=== PATIENT | male | born 1930 | race Caucasian/White ===

== ENCOUNTER 2019-06-07 07:47 | Day surgery (SDC) | payer OTHER ==
[2019-06-04 15:24] LABS: Absolute Lymphocytes (CBC) 1.4 K/uL (0.7-4.9); Basophils % 0.9 % (0-1.3); Lymphocytes % 19.6 % (15.3-44.8); MPV 8.6 fL (7.6-11.3); RBC Red Blood Cell Count 5.16 M/uL (4.33-5.43)
[2019-06-04 15:28] LABS: Protime INR 1.03
--- NOTE | 2019-06-04 15:50 | RAD REPORT ---
EXAM DESCRIPTION: RAD - Chest Pa And Lat (2 Views) - 06/04/2019 3:00 pm CLINICAL HISTORY: pre-op for cath procedurepending cardiac catheterization COMPARISON: Two view chest October 2018 TECHNIQUE: PA and lateral views of the chest were obtained. FINDINGS: The lungs are similar volume to the comparison. Chronic interstitial lung disease is prese nt. Lung markings are not substantially different comparison. Right hemidiaphragm elevation and righ t costophrenic will are unchanged. Heart size is normal and central vasculature is within normal limi ts. No pleural effusion or pneumothorax seen. No acute bony finding noted. No aortic abnormality. IMPRESSION: Chronic interstitial lung disease is present with a pattern similar to the October 2018 stud y. No acute finding.
[2019-06-07] MEDS ORDERED: NA CHLORIDE 0.9% 500 ML ONE (08:48)
[2019-06-07] MEDS ORDERED: HEPA 1000U/500MLS 2,000 UNIT/1,000 ML BAG IV ONE (09:12)
[2019-06-07] MEDS ORDERED: MIDAZOLAM HCL 2 MG/2 ML INJ ONE (09:23)
[2019-06-07] MEDS ORDERED: FENTANYL CITR 100 MCG/2 ML ONE ×2 (09:23→13:36)
[2019-06-07] MEDS ORDERED: HYDRALAZINE HCL 20 MG/ML VIAL ONE (09:57)
[2019-06-07 11:10] VITALS: TEMP 97.3
[2019-06-07] MEDS ORDERED: FENTANYL CITR 100 MCG/2 ML IV ONE (13:33)
--- NOTE | 2019-06-07 13:53 | OP ---
Surgeon: Boris Parnell MD Mr. Farley is 88. Procedure: Abdominal angiogram with runoffs. No stent procedure or other interventional procedure w as done. 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 It was patent. No endoleak. Both stents were widely patent wi th no stenosis. They connected to both common femoral arteries bilaterally. 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 There is a stent that has absolu tely no flow and even after 15 seconds of waiting no measurable amount of contrast reached the poplit eal artery or the distal vessels, so on the right we never saw the popliteal anterior tibial, posteri or tibial, or peroneal arteries. On the left, there is a stent in the very proximal part of the SFA that has a 50% in-stent stenosis distal to that and the SFA is a long 70 to 90% stenosis. Flow is sl ow and it takes between 5 to 8 seconds for any flow to reach the popliteal vessels. There is no visu alization of the posterior tibial, anterior tibial, or peroneal arteries on the left. Procedure In Detail: The patient was brought to the cardiac pathology laboratory technologist in a fasting state, sedated wit h Versed and fentanyl, prepared and draped in usual sterile fashion. Right femoral approach was used . We used 1% lidocaine, 15 cc to anesthetize the tissues around the right femoral artery, it was ent ered using an 18-gauge needle, a short J-wire was placed into the artery and a 4-Surinamese sheath was pl aced. We used this to put a 4-Surinamese sheath into the descending aorta just above the level of the ki dney arteries. A single injection was done of 60 mL of contrast and angiograms were carried out so w e could see all of the distal vessels from this one, shot at the end of the procedure when we decided not to attempt any intervention. The sheath was pulled. The arteriotomy closed using manual pressu re. The patient will be referred to a vascular surgeon to consider revascularization. It may be oxana ng with being technically difficult, it may be highly risky for Mr. Farley at age 88 to go undergo a vascular surgery procedure, but perhaps an attempt could be made using a stent to get more flow to th e popliteal artery on the left. SH/MODL Voice ID: [id number] Report ID: [id number]
[2019-06-07 16:27] VITALS: BP 147/84; O2SAT 93
== END 2019-06-07 16:29 | disposition home or self-care (01) ==
LOC: CCL 07:47
PROVIDERS: ATTEND Internal Medicine
DX: I70.211 Atherosclerosis of native arteries of extremities with intermittent claudication, right leg (principal); I70.92 Chronic total occlusion of artery of the extremities; I10 Essential (primary) hypertension; E78.5 Hyperlipidemia, unspecified; E11.9 Type 2 diabetes mellitus without complications; Z87.891 Personal history of nicotine dependence; Z82.49 Family history of ischemic heart disease and other diseases of the circulatory system
CPT/HCPCS: 85025; 36415; 85610; 82947 ×2; 85730; 71046; 36200; 75630; C1893; J0360; J2250; J3010 ×2; J7040

== ENCOUNTER 2020-04-06 20:49 | Observation (INO) | payer OTHER ==
--- OUTSIDE RECORDS SUMMARY | 2020-04-06 20:52 | XMS REPORT | Clinical Summary ---
:1930 Author Organization [facility] Address [address] [place] [address] Care Team Providers Name Role Phone Unavailable Primary Care Provider Unavailable Allergies No Known Allergies Medications Medication Sig Dispensed Refills Start Date End Date Status simvastatin Take 20 mg 0 Active (ZOCOR) 20 MG by mouth tablet nightly. atenolol Take 25 mg 0 Active (TENORMIN) 25 MG by mouth tablet daily. sertraline Take 50 mg 0 Active (ZOLOFT) 50 MG by mouth tablet daily. meloxicam (MOBIC) Take 7.5 mg 0 Active 15 MG tablet by mouth daily . aspirin 81 MG EC Take 81 mg 0 Ac tive tablet by mouth daily. ascorbic acid, Take 1,000 0 Acti ve vitamin C, mg by mouth (VITAMIN C) 1000 daily. MG tablet valsartan Take 320 mg 0 Active (DIOVAN) 320 MG by mouth tablet daily. omega-3 fatty Take 2 g by 0 Acti ve acids-fish oil mouth 2 340-1,000 mg Cap (two) times per capsule daily. folic Take by 0 Active acid/multivit-min mouth. /lutein (CENTRUM SILVER ORAL) clopidogrel Take 1 360 tablet 0 07/09/2019 Active (PLAVIX) 75 mg tablet (75 1 tablet mg total) by mouth daily. clopidogrel Take 1 30 tablet 2 07/09/2019 Discont inued (PLAVIX) 75 mg tablet (75 0 (Reo rder) tablet mg total) by mouth daily. 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 Never 07/05/2019 How many drinks containing alcohol do you have on a typical Not asked day when you are drinking? How often do you have six or more drinks on one occasion? No t asked Sex Assigned at Date Recorded Not on file Last Filed Vital Signs Vital Sign Reading Time Taken Comments Blood Pressure 167/94 07/09/2019 1:18 PM IMAGE ARCHIVIST Pulse 57 07/09/2019 1:18 PM IMAGE ARCHIVIST Temperature 37.1 C (98.7 F) 07/09/2019 5:00 AM IMAGE ARCHIVIST Respiratory Rate 18 07/09/2019 1:18 PM IMAGE ARCHIVIST Oxygen Saturation 96% 07/09/2019 1:18 PM IMAGE ARCHIVIST Inhaled Oxygen Concentration - - Weight - - Height - - Body Mass Index - - Plan of Treatment Not on file Procedures Procedure Name Priority Date/Time Associated Diagnosis Comme nts CARDIAC CATH REPORT 07/14/2019 1:54 - SCAN PM IMAGE ARCHIVIST CT/CTA AAA AND Routine 07/14/2019 1:35 Atherosclerosis of Res ults for this RUNOFF PM IMAGE ARCHIVIST artery of left lower procedu re are in extremity (HCC) the results section. TRANSFUSION SERVICE 07/10/2019 6:03 REPORT - SCAN PM IMAGE ARCHIVIST PERIPHERAL ANGIOS / 07/09/2019 7:02 PAD (peripheral a rtery AORTOGRAM AM IMAGE ARCHIVIST disease) (HCC) Case Notes (1)CASE 6TOP ABORH, MANUAL STAT 07/09/2019 6:32 AM IMAGE ARCHIVIST Res ults for this procedure are i n the results section . TYPE AND SCREEN, AUTOMATED Routine 07/09/2019 6:12 AM IMAGE ARCHIVIST Results for this procedure are i n the results section . CBC W/PLT COUNT & AUTO Routine 07/05/2019 11:43 AM IMAGE ARCHIVIST Results for this DIFFERENTIAL procedure are i n the results section . CBC W/PLT COUNT & AUTO Routine 07/05/2019 11:43 AM IMAGE ARCHIVIST Results for this DIFFERENTIAL procedure are i n the results section . BASIC METABOLIC PANEL (7) Routine 07/05/2019 11:43 AM IMAGE ARCHIVIST Results for this procedure are i n the results section . ECG 12-LEAD Routine 07/05/2019 11:34 AM IMAGE ARCHIVIST Procedure Note - Interface, External Ris In - 07/05/2019 1:01 PM IMAGE ARCHIVIST Ventricular Rate 59 BPM Atrial Rate 59 BPM P-R Interval 226 ms QRS Duration 94 ms Q-T Interval 434 ms QTC Calculation(Bazett) 429 ms P [place] 50 degrees R [place] 81 degrees T [place] 41 degrees Sinus bradycardia with 1st d egree A-V block Otherwise normal ECG No previous ECGs available ECG 12-LEAD Routine 07/05/2019 11:34 AM IMAGE ARCHIVIST Resu lts for this procedure are in the results section . after 04/06/2019 Results CARDIAC CATH REPORT - SCAN (07/14/2019 1:54 PM IMAGE ARCHIVIST) Narrative Performed At This result has an attachment that is no t available. CTA AAA and Runoff (07/14/2019 1:35 PM IMAGE ARCHIVIST) Specimen Narrative Performed At Addendum Begins [employer] RIS REPORT STATUS:A Addendum: I agree with the previously described no n vascular findings. Sigmoid diverticulosis is apparent, with out signs of diverticulitis. Signed: Umang Castro MD Report Verified Date/Time: 07/19/2019 12:50:12 Reading Location: [facility] Reading Room - [facility] [id number] Addendum Ends FINAL REPORT CTA AAA with bilateral external runoff - 07/14/2019 3:39 PM. Comparison: None available History: 88 years old Male with left l imb claudication with recent intervention angioplasty of the left SFA . Evaluated for interval change. 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 This study is performed in an attempt to avoi d an invasive procedure. Technique: Multi-detector CT technolog y was employed ([place] CT 660 scanner). Spiral acquisition before and during intravenous contrast administration. Images were obtained bef ore and during the dynamic passage of intravenous contrast material . Multi-planar 3-D volume-rendering reconstruction was perf ormed using an independent workstation interactively by the interpr eting physician as well as the 3-D specialist for optimal visualiza tion of the abdominal aorta, pelvic arteries as well as its branches, along with bilateral lower extremity vasculature. Please refer to the contrast sheet scann ed in the EPIC system for the amount and route of contrast given. This exam was performed according to our departmental dose-optimization programme, which inclu gloria automated exposure control, adjustment of the mA and/or kV according to patient size and/or use of iterative reconstruction t echnique. Dose modulation, iterative reconstruction, and/or weight based adjustment of the mA/kV was utilized to reduce the radiation dos e to as low as reasonably achievable. RESULT: Potential study limitations: None. LIMITED CHEST: The visualized chest wall is unremarkabl e. The visualized lungs reveal no acute abnormalities, except fo r bilateral dependent atelectasis and emphysematous changes. There is a 5 mm noncalcific nodule in the left lower lobe (image 51) . VASCULAR WITH ADVANCED 3-D OFFLINE POST- PROCESSING: The supra mesenteric and mesenteric and renal segments of the abdominal aorta are normal in course and caliber with mild to moderate protruding atherosclerotic muñoz ges. Endovascular stent graft, commencing imm ediately below the renal arteries into the iliac arteries, and yuen ve typical crisscrossing pattern with the left iliac limb termina meredith in the left common iliac artery and the right iliac system termin ates in the right common iliac artery. The endostent is well-posi tioned. The proximal margin and the distal margin are well opposed. There is no evidence of endoleak, stenosis or pseudoaneurysm not ed. The celiac artery, SMA, and BOONE are bradshaw nt. The bilateral single renal arteries are patent. The pelvic arteries are tortuous, but no rmal in caliber with mild to moderate calcification sclerotic changes . Bilateral common femoral arteries are no rmal in course and caliber with mild distal calcific atheroscleroti c changes. The right superficial femoral artery has multiple skipped lesions at its ostium and proximal segment with priya r total occlusion and has diffuse calcific atherosclerotic changes at its mid segment, there is a patent stent with mild instant resteno sis distal to the stent the femoral artery is normal in course and c aliber with no significant luminal stenosis. The right popliteal artery is normal in caliber with minimal calcific atherosclerotic changes. The right tibio peroneal trunk is normal in caliber and contour. The anterior tibial artery is normal in caliber and is widely patent and continues as do rsalis pedis artery at its distal end. The right peroneal artery is widely patent and terminates at the ankle. The posterior tibial arter y is also widely patent and terminates as distal plantar branches. The left superficial femoral artery has moderate atherosclerotic changes with protruding thrombus at its proximal segment followed by a short widely patent stent with minimal in-stent restenosis. The mid segment of the SFA has moderate luminal atherosclerosis though no significant luminal stenosis noted. The right popliteal artery is widely pat ent with minimal calcific atherosclerotic changes. The right tibio peroneal trunk is patent. The right anterior tibial artery is patent a nd terminates as dorsalis pedis artery at its distal end. The patrice leandra artery is also widely patent and terminates just ankle the pos terior tibial artery is small in caliber however there is contrast opa cification throughout the course of the artery with no significant critical stenosis noted. There is no acute aortic pathology, such as dissection, intramural hematoma, or contained rupture. Senior [employer] dimensions of the abdomin al aorta are as follows: *2.8 cm at the supra-mesenteric segment *2.2 cm at the mesenteric segment *2.0 cm at the renal segment *2.0 cm at the infrarenal segment *2.1 x 2.6 cm at the aortic bifurcation The IVC, right iliac vein, and left miguel c vein are patent and without visible thrombus. ABDOMEN-PELVIS: In the abdomen, the liver and spleen katie ears unremarkable. No abnormal enhancing structure is identifi ed. The pancreas appears grossly normal. The adrenal glands are n ot enlarged. There is a large single gallstone measuring 2.3 cm in the gallbladder. The kidneys are normal in size and shape . No hydronephrosis or perirenal fluid collection is identified . There is a large simple appearing 4.6 cm cyst in the lower pole of the left kidney. Bowel is not well assessed by CT angiogr aphy as enteric contrast is not given. No obvious bowel dilation is seen. There is no significant retroperitoneal adenopathy. No free fluid or free air is identified. The visualized pelvic organs appear unre markable. BONES: Degenerative changes involving the thora cic and lumbar spine. IMPRESSION: 1. Endovascular stent graft, commencing immediately below the renal arteries into the iliac arteries, and yuen ve typical crisscrossing pattern with the left iliac limb termina meredith in the left common iliac artery and the right iliac system termin ates in the right common iliac artery. The endo-stent is well-pos itioned. The proximal margin and the distal margin are well opposed. There is no evidence of endoleak, stenosis or pseudoaneurysm not ed. 2. The right superficial femoral artery has multiple skipped lesions at its ostium and proximal segment with near total occlusion and has diffuse calcific atherosclerotic changes at its mid segment, there is a patent stent with mild instant resteno sis distal to the stent the femoral artery is normal in course and c aliber with no significant luminal stenosis. 3. The left superficial femoral artery h as moderate atherosclerotic changes with protruding thrombus at its proximal segment followed by a short widely patent stent with minimal in-stent restenosis. The mid segment of the SFA has moderate luminal atherosclerosis though no significant luminal stenosis noted. 4. The popliteal and tibioperoneal trunk are widely patent with only minimal calcific atherosclerotic changes . Normal bilateral runoffs with mild diffuse atherosclerotic change s. 5. There is a large single gallstone luca suring 2.3 cm in the gallbladder. There is a large simple katie earing 4.6 cm cyst in the lower pole of the left kidney. 6. There is a 5 mm noncalcific nodule in the left lower lobe, a follow-up unenhanced low-dose CT can be obtained in 3-6 months at clinical discretion. An addendum will be dictated regarding t he non-vascular findings by the Sheet Tester Radiologists. Signed: Charles Holden MD Report Verified Date/Time: 07/16/2019 08:43:19 Electronically signed by: UMANG pritchett 07/19/2019 12:50 PM Procedure Note Interface, External Ris In - 07/19/2019 12:52 PM IMAGE ARCHIVIST Addendum Begins REPORT STATUS:A Addendum: I agree with the previously described no n vascular findings. Sigmoid diverticulosis is apparent, with out signs of diverticulitis. Signed: Umang Castro MD Report Verified Date/Time: 07/19/2019 1 2:50:12 Reading Location: [facility] Reading Room - [facility] [id number] Addendum Ends FINAL REPORT CTA AAA with bilateral external runoff - 07/14/2019 3:39 PM. Comparison: None available History: 88 years old Male with left li mb claudication with recent intervention angioplasty of the left SFA . Evaluated for interval change. 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 This study is performed in an attempt to avoi d an invasive procedure. Technique: Multi-detector CT technology was employed ([place] CT 660 scanner). Spiral acquisition before and during intravenous contrast administration. Images were obtained bef ore and during the dynamic passage of intravenous contrast material . Multi-planar 3-D volume-rendering reconstruction was perf ormed using an independent workstation interactively by the interpr eting physician as well as the 3-D specialist for optimal visualiza tion of the abdominal aorta, pelvic arteries as well as its branches, along with bilateral lower extremity vasculature. Please refer to the contrast sheet scann ed in the [employer] system for the amount and route of contrast given. This exam was performed according to our departmental dose-optimization programme, which inclu gloria automated exposure control, adjustment of the mA and/or kV according to patient size and/or use of iterative reconstruction t echnique. Dose modulation, iterative reconstruction, and/or weight based adjustment of the mA/kV was utilized to reduce the radiation dos e to as low as reasonably achievable. RESULT: Potential study limitations: None. LIMITED CHEST: The visualized chest wall is unremarkabl e. The visualized lungs reveal no acute abnormalities, except fo r bilateral dependent atelectasis and emphysematous changes. There is a 5 mm noncalcific nodule in the left lower lobe (image 51) . VASCULAR WITH ADVANCED 3-D OFFLINE POST- PROCESSING: The supra mesenteric and mesenteric and renal segments of the abdominal aorta are normal in course and caliber with mild to moderate protruding atherosclerotic muñoz ges. Endovascular stent graft, commencing imm ediately below the renal arteries into the iliac arteries, and yuen ve typical crisscrossing pattern with the left iliac limb termina mereidth in the left common iliac artery and the right iliac system termin ates in the right common iliac artery. The endostent is well-posi tioned. The proximal margin and the distal margin are well opposed. There is no evidence of endoleak, stenosis or pseudoaneurysm not ed. The celiac artery, SMA, and BOONE are bradshaw nt. The bilateral single renal arteries are patent. The pelvic arteries are tortuous, but no rmal in caliber with mild to moderate calcification sclerotic changes . Bilateral common femoral arteries are no rmal in course and caliber with mild distal calcific atheroscleroti c changes. The right superficial femoral artery has multiple skipped lesions at its ostium and proximal segment with priya r total occlusion and has diffuse calcific atherosclerotic changes at its mid segment, there is a patent stent with mild instant resteno sis distal to the stent the femoral artery is normal in course and c aliber with no significant luminal stenosis. The right popliteal artery is normal in caliber with minimal calcific atherosclerotic changes. The right tibio peroneal trunk is normal in caliber and contour. The anterior tibial artery is normal in caliber and is widely patent and continues as do rsalis pedis artery at its distal end. The right peroneal artery is widely patent and terminates at the ankle. The posterior tibial arter y is also widely patent and terminates as distal plantar branches. The left superficial femoral artery has moderate atherosclerotic changes with protruding thrombus at its proximal segment followed by a short widely patent stent with minimal in-stent restenosis. The mid segment of the SFA has moderate luminal atherosclerosis though no significant luminal stenosis noted. The right popliteal artery is widely pat ent with minimal calcific atherosclerotic changes. The right tibio peroneal trunk is patent. The right anterior tibial artery is patent a nd terminates as dorsalis pedis artery at its distal end. The patrice elandra artery is also widely patent and terminates just ankle the pos terior tibial artery is small in caliber however there is contrast opa cification throughout the course of the artery with no significant critical stenosis noted. There is no acute aortic pathology, such as dissection, intramural hematoma, or contained rupture. Senior [employer] dimensions of the abdomin al aorta are as follows: *2.8 cm at the supra-mesenteric segment *2.2 cm at the mesenteric segment *2.0 cm at the renal segment *2.0 cm at the infrarenal segment *2.1 x 2.6 cm at the aortic bifurcation The IVC, right iliac vein, and left miguel c vein are patent and without visible thrombus. ABDOMEN-PELVIS: In the abdomen, the liver and spleen katie ears unremarkable. No abnormal enhancing structure is identifi ed. The pancreas appears grossly normal. The adrenal glands are n ot enlarged. There is a large single gallstone measuring 2.3 cm in the gallbladder. The kidneys are normal in size and shape . No hydronephrosis or perirenal fluid collection is identified . There is a large simple appearing 4.6 cm cyst in the lower pole of the left kidney. Bowel is not well assessed by CT angiogr aphy as enteric contrast is not given. No obvious bowel dilation is seen. There is no significant retroperitoneal adenopathy. No free fluid or free air is identified. The visualized pelvic organs appear unre markable. BONES: Degenerative changes involving the thora cic and lumbar spine. IMPRESSION: 1. Endovascular stent graft, commencing immediately below the renal arteries into the iliac arteries, and yuen ve typical crisscrossing pattern with the left iliac limb termina meredith in the left common iliac artery and the right iliac system termin ates in the right common iliac artery. The endo-stent is well-pos itioned. The proximal margin and the distal margin are well opposed. There is no evidence of endoleak, stenosis or pseudoaneurysm not ed. 2. The right superficial femoral artery has multiple skipped lesions at its ostium and proximal segment with near total occlusion and has diffuse calcific atherosclerotic changes at its mid segment, there is a patent stent with mild instant resteno sis distal to the stent the femoral artery is normal in course and c aliber with no significant luminal stenosis. 3. The left superficial femoral artery h as moderate atherosclerotic changes with protruding thrombus at its proximal segment followed by a short widely patent stent with minimal in-stent restenosis. The mid segment of the SFA has moderate luminal atherosclerosis though no significant luminal stenosis noted. 4. The popliteal and tibioperoneal trunk are widely patent with only minimal calcific atherosclerotic changes . Normal bilateral runoffs with mild diffuse atherosclerotic change s. 5. There is a large single gallstone luca suring 2.3 cm in the gallbladder. There is a large simple katie earing 4.6 cm cyst in the lower pole of the left kidney. 6. There is a 5 mm noncalcific nodule in the left lower lobe, a follow-up unenhanced low-dose CT can be obtained in 3-6 months at clinical discretion. An addendum will be dictated regarding t he non-vascular findings by the Sheet Tester Radiologists. Signed: Charles Holden MD Report Verified Date/Time: 07/16/2019 0 8:43:19 Performing Organization Address City/State/Zipcode Phone Number [facility] TRANSFUSION SERVICE REPORT - SCAN (07/10/2019 6:03 PM IMAGE ARCHIVIST) Narrative Performed At This result has an attachment that is no t available. ABORH, manual (07/09/2019 6:32 AM IMAGE ARCHIVIST) Pathologist Sig nature ABO Grouping O [facility] Rh Factor POS [facility] Specimen Blood Performing Organization Address City/[facility]/Zipcode Phone Number [facility] [address] [place] [phone] Type and screen, automated (07/09/2019 6:12 AM IMAGE ARCHIVIST) Pathologist Sig nature ABO/RH AUTOMATED O POSITIVE [facility] Ab Scrn NEGATIVE [facility] Specimen Blood Performing Organization Address City/[facility]/Zipcode Phone Number [facility] [address] [place] [address] CBC with platelet count + automated diff (07/05/2019 11:43 AM IMAGE ARCHIVIST) Pathologist Sig nature WBC 6.8 3.5 - 10.5 [facility] K/L [facility] RBC 5.31 4.63 - 6.08 [facility] M/L [facility] Hemoglobin 16.9 13.7 - 17.5 [facility] GM/DL [facility] Hematocrit 51.2 (H) 40.1 - 51.0 % [facility] MCV 96.4 (H) 79.0 - 92.2 fL [facility] MCH 31.8 25.7 - 32.2 pg [facility] MCHC 33.0 32.3 - 36.5 [facility] GM/DL [facility] RDW 13.6 11.6 - 14.4 % [facility] Platelets 276 150 - 450 K/CU [facility] MPV 10.2 9.4 - 12.4 fL [facility] nRBC 0 0 - 0 /100 WBC [facility] % Neutros 64 % [facility] % Lymphs 21 % [facility] % Monos 8 % [facility] % Eos 7 % [facility] % Baso 1 % [facility] # Neutros 4.32 1.78 - 5.38 [facility] # Lymphs 1.39 1.32 - 3.57 [facility] # Monos 0.53 0.30 - 0.82 [facility] # Eos 0.46 0.04 - 0.54 [facility] # Baso 0.05 0.01 - 0.08 [facility] Immature 0 0 - 1 % [facility] Granulocytes-Relative [facility] Specimen Blood Performing Organization Address City/State/Zipcode Phone Number [facility] [address] [place] [address] CENTER Basic Metabolic Panel (07/05/2019 11:43 AM IMAGE ARCHIVIST) Sodium 141 136 - 145 meq/L [facility] Potassium 4.9 3.5 - 5.1 meq/L [facility] Chloride 104 98 - 107 meq/L [facility] CO2 32 (H) 22 - 29 meq/L [facility] BUN 12 7 - 21 mg/dL [facility] Creatinine 0.89 0.57 - 1.25 [facility] mg/dL [facility] Glucose 114 (H) 70 - 105 mg/dL [facility] Calcium 9.0 8.4 - 10.2 [facility] mg/dL [facility] EGFR 81Comment: ESTIMATED mL/min/1.73 sq [facility] GFR IS NOT [facility] CREATININE CLEARANCE IN PREDICTING GLOMERULAR FILTRATION RATE. ESTIMATED GFR IS NOT APPLICABLE FOR DIALYSIS PATIENTS. Specimen Blood Narrative Performed At Cnc Technician ID - SUNIL Parks [facility] Performing Organization Address City/State/Zipcode Phone Number [facility] [id number] [place] [address] CENTER ECG 12 lead (07/05/2019 11:34 AM IMAGE ARCHIVIST) Specimen Narrative Performed At Ventricular Rate 59 BPM GE MUSE Atrial Rate 59 BPM P-R Interval 226 ms QRS Duration 94 ms Q-T Interval 434 ms QTC Calculation(Bazett) 429 ms P [place] 50 degrees R [place] 81 degrees T [place] 41 degrees Sinus bradycardia with 1st degree A-V bl ock Otherwise normal ECG No previous ECGs available Confirmed by MD KASSANDRA, RANCHO ([id number]) on 07/06/2019 7:07:41 AM Procedure Note Interface, External Ris In - 07/06/2019 7:07 AM IMAGE ARCHIVIST Ventricular Rate 59 BPM Atrial Rate 59 BPM P-R Interval 226 ms QRS Duration 94 ms Q-T Interval 434 ms QTC Calculation(Bazett) 429 ms P [place] 50 degrees R [place] 81 degrees T [place] 41 degrees Sinus bradycardia with 1st degree A-V bl ock Otherwise normal ECG No previous ECGs available Confirmed by MD KASSANDRA, RANCHO ([id number]) on 07/06/2019 7:07:41 AM Performing Organization Address City/State/Zipcode Phone Number [facility] after 04/06/2019 Insurance Payer Benefit Plan / Subscriber ID Effective Dates Phone Addre ss Type Group MEDICARE MEDICARE A B [id number] 1997-Present Medicare AETNA - [place]GD CARE AETNA INDEMNITY [id number] 2000-Present Comm NON CONTR
--- OUTSIDE RECORDS SUMMARY | 2020-04-06 20:53 | XMS REPORT | Continuity of Care Document ---
:1930 Author Organization [facility] t Address [address] [place] [address] Care Team Providers Name Role Phone Roldan CALI Attending Clinician Roldan CALI Attending Clinician ROLDAN Attending Clinician Unavailable Payers Payer Name Policy Type Policy Effective Date Expiration Date Sour ce Number MEDICAREMEDICARE A [id number] [address] [facility] [id number] [facility]-P 00:00:00 - Medical resentMedicare Center AETNA - MGD CAREAETNA [id number] [address] [facility] INDEMNITY NON 00:00:00 - Medical [id number] Ce nter -PresentComm Problems This patient has no known problems. Allergies, Adverse Reactions, Alerts This patient has no known allergies or adverse reactions. Social History Social Habit Start Date Stop Date Quantity Comments Source History [facility] - Alcohol Std Drinks Medica l Center History [facility] - Alcohol Binge Medical Manuelito ter Sex Assigned At [facility] Tobacco use and 2019-07-12 2019-07-[address] [facility] Karen kes - exposure 00:00:00 00:00:00 [facility] Alcohol intake 2019-07-12 2019-07-[address] [facility] Carlota es - 00:00:00 00:00:00 non-drinker of Medical Ce nter alcohol (finding) History SDOH 2019-07-05 2019-07-[address] [facility] - Alcohol Frequency 00:00:00 00:00:00 [facility] Tobacco Comment 2019-07-05 2019-07-05 quit in [address] [facility] - 00:00:00 00:00:00 [facility] Smoking Status Start Date Stop Date Source Former smoker 2019-07-12 00:00:00 2019-07-12 00:00:[address] [facility] Medications Ordered Filled Start Stop Current Ordering Indication Dosage Frequency Signature Comments Components Source Medication Medication Date Date Medication? Clinician (SIG) Name Name simvastatin Yes 20mg QD Take [address] (ZOCOR) 20 1-17 by mouth [facility]ukes - MG tablet 14:13: nightly. [facility] yasmine [address] [place] [address] atenolol Yes 25mg QD Take [address] (TENORMIN) 1-17 by mouth Lukes - 25 MG 14:13: daily. Medical tablet [address] [place] sertraline Yes 50mg QD Take [address] (ZOLOFT) 50 1-17 by mouth Luke s - MG tablet 14:13: daily. Medica l [address] [place] [address] meloxicam Yes 7.5mg QD Take 7.[address] (MOBIC) 15 1-17 mg by Lukes - MG tablet 14:13: mouth Medical 35 daily . [place] aspirin 81 Yes 81mg QD Take [address] MG EC -17 by mouth Lukes - tablet 14:13: daily. [address] ascorbic Yes 1000mg QD Take 1,[address] acid, 1-17 mg by [facility]ukes - vitamin C, 14:13: mouth Medica l (VITAMIN C) 35 daily. [place] 1000 MG tablet valsartan Yes 320mg QD Take [address] (DIOVAN) 1-17 mg by Lukes - 320 MG 14:13: mouth Medical tablet 35 daily. [place] omega-3 0 Yes 2g Q.5D Take [address] fatty 1-17 by mouth 2 [facility]ukes - acids-fish 14:13: (two) Medica l oil 35 times [place] 340-1,000 daily. mg Cap per capsule folic 2019- Yes Take by [facility] acid/multiv 1-17 mouth. [facility]ukes - it-min/lute 14:13: Medica l in (CENTRUM 35 [place] SILVER ORAL) clopidogrel 2020- No 75mg QD Take [address] (PLAVIX) 75 1-17 -16 tablet (75 L ukes - mg tablet 00:00: 23:59 mg total) Me dical 00 :00 by mouth Center daily. clopidogrel 75mg QD Take 1 [facility] (PLAVIX) 75 07-09 tablet (75 L ukes - mg tablet 00:00: 00:00 mg total) Me dical 00 :00 by mouth Center daily. Vital Signs Vital Name Observation Time Observation Value Comments Source Systolic blood 2019-07-09 13:18:00 167 mm[Hg] [facility] Diastolic blood 2019-07-09 13:18:00 94 mm[Hg] [facility] Heart rate 2019-07-09 13:18:00 57 /min [facility] Respiratory rate 2019-07-09 13:18:00 18 /min [facility] Oxygen saturation in 2019-07-09 13:18:00 96 /min [facility] Arterial blood by Medical Ce nter Pulse oximetry Body temperature 2019-07-09 05:00:00 37.06 Awilda [facility] Procedures Procedure Date / Time Performed Performing Clinician [facility] e CARDIAC CATH REPORT - 2019-07-14 13:54:05 Provider, Default [facility] SCAN Scanning [facility] CT/CTA AAA AND RUNOFF 2019-07-14 13:35:00 Josh Montilla [facility] TRANSFUSION SERVICE 2019-07-10 18:03:43 Provider, Default [facility] - REPORT - SCAN Scanning [facility] PERIPHERAL ANGIOS / 2019-07-09 07:02:00 Josh Montilla [facility] - AORTOGRAM [facility] ABORH, MANUAL 2019-07-09 06:32:00 Maria Teresa Vazquez [facility] TYPE AND SCREEN, 2019-07-09 06:12:00 Marah Gaines [facility] AUTOMATED [facility] BASIC METABOLIC PANEL 2019-07-05 11:43:00 Josh Montilla [facility] (7) [facility] CBC W/PLT COUNT & AUTO 2019-07-05 11:43:[address] [facility] DIFFERENTIAL [facility] ECG 12-LEAD 2019-07-05 11:34:58 Unknown, Hl7 Doctor [facility] Encounters Start End Encounter Admission Attending Care Care Encounter Source Date/Time Date/Time Type Type Clinicians Facility Department ID 2019-07-28 2019-07-28 Office KOBE Montilla [id number] 00 11:31:22 16:15:49 Visit Josh AMBULATOR [id number] Y [id number] Results Test Description Test Time Test Comments Results Result Sour e Comments CT, CTA AAA, W/ 2019-07-19 Addendum CHER.EXT.RUNOFF 12:50:00 BeginsREPORT STATUS:A Addendum: I agree with the previously described non vascular findings. Sigmoid diverticulosis is apparent, without signs of diverticulitis. Signed: Vi Castro MDReport Verified Date/Time: 07/19/2019 12:50:12 Reading Location: [facility] Diagnostic Imaging Reading Room - [facility] 1[facility].12Addendum EndsFINAL REPORT CTA AAA with bilateral external runoff - 07/14/2019 3:39 PM. Comparison: None available History: 88 years old Male with left limb claudication with recent intervention angioplasty of the left SFA. Evaluated for interval change. Indication: Clinically suspected peripheral vascular disease. This study is performed in an attempt to avoid an invasive procedure. Technique: Multi-detector CT technology was employed (Bartley CT 660 scanner). Spiral acquisition before and during intravenous contrast administration. Images were obtained before and during the dynamic passage of intravenous contrast material. Multi-planar 3-D volume-rendering reconstruction was performed using an independent workstation interactively by the interpreting physician as well as the 3-D specialist for optimal visualization of the abdominal aorta, pelvic arteries as well as its branches, along with bilateral lower extremity vasculature. Please refer to the contrast sheet scanned in the EPIC system for the amount and route of contrast given. This exam was performed according to our departmental dose-optimization programme, which includes automated exposure control, adjustment of the mA and/or kV according to patient size and/or use of iterative reconstruction technique. Dose modulation, iterative reconstruction, and/or weight based adjustment of the mA/kV was utilized to reduce the radiation dose to as low as reasonably achievable. RESULT: Potential study limitations: None. LIMITED CHEST:The visualized chest wall is unremarkable. The visualized lungs reveal no acute abnormalities, except for bilateral dependent atelectasis and emphysematous changes. There is a 5 mm noncalcific nodule in the left lower lobe (image 51). VASCULAR WITH ADVANCED 3-D OFFLINE POST-PROCESSING:The supra mesenteric and mesenteric and renal segments of the abdominal aorta are normal in course and caliber with mild to moderate protruding atherosclerotic changes. Endovascular stent graft, commencing immediately below the renal arteries into the iliac arteries, and have typical crisscrossing pattern with the left iliac limb terminates in the left common iliac artery and the right iliac system terminates in the right common iliac artery. The endostent is well-positioned. The proximal margin and the distal margin are well opposed. There is no evidence of endoleak, stenosis or pseudoaneurysm noted. The celiac artery, SMA, and BOONE are patent. The bilateral single renal arteries are patent. The pelvic arteries are tortuous, but normal in caliber with mild to moderate calcification sclerotic changes. Bilateral common femoral arteries are normal in course and caliber with mild distal calcific atherosclerotic changes. The right superficial femoral artery has multiple skipped lesions at its ostium and proximal segment with near total occlusion and has diffuse calcific atherosclerotic changes at its mid segment, there is a patent stent with mild instant restenosis distal to the stent the femoral artery is normal in course and caliber with no significant luminal stenosis. The right popliteal artery is normal in caliber with minimal calcific atherosclerotic changes. The right tibioperoneal trunk is normal in caliber and contour. The anterior tibial artery is normal in caliber and is widely patent and continues as dorsalis pedis artery at its distal end. The right peroneal artery is widely patent and terminates at the ankle. The posterior tibial artery is also widely patent and terminates as distal plantar branches. The left superficial femoral artery has moderate atherosclerotic changes with protruding thrombus at its proximal segment followed by a short widely patent stent with minimal in-stent restenosis. The mid segment of the SFA has moderate luminal atherosclerosis though no significant luminal stenosis noted. The right popliteal artery is widely patent with minimal calcific atherosclerotic changes. The right tibioperoneal trunk is patent. The right anterior tibial artery is patent and terminates as dorsalis pedis artery at its distal end. The peroneal artery is also widely patent and terminates just ankle the posterior tibial artery is small in caliber however there is contrast opacification throughout the course of the artery with no significant critical stenosis noted. There is no acute aortic pathology, such as dissection, intramural hematoma, or contained rupture. Lead Process Engineer dimensions of the abdominal aorta are as follows: *2.8 cm at the supra-mesenteric segment*2.2 cm at the mesenteric segment*2.0 cm at the renal segment*2.0 cm at the infrarenal segment*2.1 x 2.6 cm at the aortic bifurcation The IVC, right iliac vein, and left iliac vein are patent and without visible thrombus. ABDOMEN-PELVIS:In the abdomen, the liver and spleen appears unremarkable. No abnormal enhancing structure is identified. The pancreas appears grossly normal. The adrenal glands are not enlarged. There is a large single gallstone measuring 2.3 cm in the gallbladder. The kidneys are normal in size and shape. No hydronephrosis or perirenal fluid collection is identified. There is a large simple appearing 4.6 cm cyst in the lower pole of the left kidney. Bowel is not well assessed by CT angiography as enteric contrast is not given. No obvious bowel dilation is seen. There is no significant retroperitoneal adenopathy. No free fluid or free air is identified. The visualized pelvic organs appear unremarkable. BONES:Degenerative changes involving the thoracic and lumbar spine. IMPRESSION: 1. Endovascular stent graft, commencing immediately below the renal arteries into the iliac arteries, and have typical crisscrossing pattern with the left iliac limb terminates in the left common iliac artery and the right iliac system terminates in the right common iliac artery. The endo-stent is well-positioned. The proximal margin and the distal margin are well opposed. There is no evidence of endoleak, stenosis or pseudoaneurysm noted. 2. The right superficial femoral artery has multiple skipped lesions at its ostium and proximal segment with near total occlusion and has diffuse calcific atherosclerotic changes at its mid segment, there is a patent stent with mild instant restenosis distal to the stent the femoral artery is normal in course and caliber with no significant luminal stenosis. 3. The left superficial femoral artery has moderate atherosclerotic changes with protruding thrombus at its proximal segment followed by a short widely patent stent with minimal in-stent restenosis. The mid segment of the SFA has moderate luminal atherosclerosis though no significant luminal stenosis noted. 4. The popliteal and tibioperoneal trunk are widely patent with only minimal calcific atherosclerotic changes. Normal bilateral runoffs with mild diffuse atherosclerotic changes. 5. There is a large single gallstone measuring 2.3 cm in the gallbladder. There is a large simple appearing 4.6 cm cyst in the lower pole of the left kidney. 6. There is a 5 mm noncalcific nodule in the left lower lobe, a follow-up unenhanced low-dose CT can be obtained in 3-6 months at clinical discretion. An addendum will be dictated regarding the non-vascular findings by the Desktop Administrator Radiologists. Signed: Charles Holden MDReport Verified Date/Time: 07/16/2019 08:43:19 AAA and 2019-07-16 Interface, External [facility] Runoff 08:43:00 Ris In - 07/19/2019 - Med ical 12:52 PM CSTAddendum Cent er BeginsREPORT STATUS:A Addendum: I agree with the previously described non vascular findings. Sigmoid diverticulosis is apparent, without signs of diverticulitis. Signed: Vi Castro MDReport Verified Date/Time: 07/19/2019 12:50:12 Reading Location: [facility] Diagnostic Imaging Reading Room - [facility] [id number] EndsFINAL REPORT CTA AAA with bilateral external runoff - 07/14/2019 3:39 PM. Comparison: None available History: 88 years old Male with left limb claudication with recent intervention angioplasty of the left SFA. Evaluated for interval change. Indication: Clinically suspected peripheral vascular disease. This study is performed in an attempt to avoid an invasive procedure. Technique: Multi-detector CT technology was employed (Bartley CT 660 scanner). Spiral acquisition before and during intravenous contrast administration. Images were obtained before and during the dynamic passage of intravenous contrast material. Multi-planar 3-D volume-rendering reconstruction was performed using an independent workstation interactively by the interpreting physician as well as the 3-D specialist for optimal visualization of the abdominal aorta, pelvic arteries as well as its branches, along with bilateral lower extremity vasculature. Please refer to the contrast sheet scanned in the EPIC system for the amount and route of contrast given. This exam was performed according to our departmental dose-optimization programme, which includes automated exposure control, adjustment of the mA and/or kV according to patient size and/or use of iterative reconstruction technique. Dose modulation, iterative reconstruction, and/or weight based adjustment of the mA/kV was utilized to reduce the radiation dose to as low as reasonably achievable. RESULT: Potential study limitations: None. LIMITED CHEST:The visualized chest wall is unremarkable. The visualized lungs reveal no acute abnormalities, except for bilateral dependent atelectasis and emphysematous changes. There is a 5 mm noncalcific nodule in the left lower lobe (image 51). VASCULAR WITH ADVANCED 3-D OFFLINE POST-PROCESSING:The supra mesenteric and mesenteric and renal segments of the abdominal aorta are normal in course and caliber with mild to moderate protruding atherosclerotic changes. Endovascular stent graft, commencing immediately below the renal arteries into the iliac arteries, and have typical crisscrossing pattern with the left iliac limb terminates in the left common iliac artery and the right iliac system terminates in the right common iliac artery. The endostent is well-positioned. The proximal margin and the distal margin are well opposed. There is no evidence of endoleak, stenosis or pseudoaneurysm noted. The celiac artery, SMA, and BOONE are patent. The bilateral single renal arteries are patent. The pelvic arteries are tortuous, but normal in caliber with mild to moderate calcification sclerotic changes. Bilateral common femoral arteries are normal in course and caliber with mild distal calcific atherosclerotic changes. The right superficial femoral artery has multiple skipped lesions at its ostium and proximal segment with near total occlusion and has diffuse calcific atherosclerotic changes at its mid segment, there is a patent stent with mild instant restenosis distal to the stent the femoral artery is normal in course and caliber with no significant luminal stenosis. The right popliteal artery is normal in caliber with minimal calcific atherosclerotic changes. The right tibioperoneal trunk is normal in caliber and contour. The anterior tibial artery is normal in caliber and is widely patent and continues as dorsalis pedis artery at its distal end. The right peroneal artery is widely patent and terminates at the ankle. The posterior tibial artery is also widely patent and terminates as distal plantar branches. The left superficial femoral artery has moderate atherosclerotic changes with protruding thrombus at its proximal segment followed by a short widely patent stent with minimal in-stent restenosis. The mid segment of the SFA has moderate luminal atherosclerosis though no significant luminal stenosis noted. The right popliteal artery is widely patent with minimal calcific atherosclerotic changes. The right tibioperoneal trunk is patent. The right anterior tibial artery is patent and terminates as dorsalis pedis artery at its distal end. The peroneal artery is also widely patent and terminates just ankle the posterior tibial artery is small in caliber however there is contrast opacification throughout the course of the artery with no significant critical stenosis noted. There is no acute aortic pathology, such as dissection, intramural hematoma, or contained rupture. Lead Process Engineer dimensions of the abdominal aorta are as follows: *2.8 cm at the supra-mesenteric segment*2.2 cm at the mesenteric segment*2.0 cm at the renal segment*2.0 cm at the infrarenal segment*2.1 x 2.6 cm at the aortic bifurcation The IVC, right iliac vein, and left iliac vein are patent and without visible thrombus. ABDOMEN-PELVIS:In the abdomen, the liver and spleen appears unremarkable. No abnormal enhancing structure is identified. The pancreas appears grossly normal. The adrenal glands are not enlarged. There is a large single gallstone measuring 2.3 cm in the gallbladder. The kidneys are normal in size and shape. No hydronephrosis or perirenal fluid collection is identified. There is a large simple appearing 4.6 cm cyst in the lower pole of the left kidney. Bowel is not well assessed by CT angiography as enteric contrast is not given. No obvious bowel dilation is seen. There is no significant retroperitoneal adenopathy. No free fluid or free air is identified. The visualized pelvic organs appear unremarkable. BONES:Degenerative changes involving the thoracic and lumbar spine. IMPRESSION: 1. Endovascular stent graft, commencing immediately below the renal arteries into the iliac arteries, and have typical crisscrossing pattern with the left iliac limb terminates in the left common iliac artery and the right iliac system terminates in the right common iliac artery. The endo-stent is well-positioned. The proximal margin and the distal margin are well opposed. There is no evidence of endoleak, stenosis or pseudoaneurysm noted. 2. The right superficial femoral artery has multiple skipped lesions at its ostium and proximal segment with near total occlusion and has diffuse calcific atherosclerotic changes at its mid segment, there is a patent stent with mild instant restenosis distal to the stent the femoral artery is normal in course and caliber with no significant luminal stenosis. 3. The left superficial femoral artery has moderate atherosclerotic changes with protruding thrombus at its proximal segment followed by a short widely patent stent with minimal in-stent restenosis. The mid segment of the SFA has moderate luminal atherosclerosis though no significant luminal stenosis noted. 4. The popliteal and tibioperoneal trunk are widely patent with only minimal calcific atherosclerotic changes. Normal bilateral runoffs with mild diffuse atherosclerotic changes. 5. There is a large single gallstone measuring 2.3 cm in the gallbladder. There is a large simple appearing 4.6 cm cyst in the lower pole of the left kidney. 6. There is a 5 mm noncalcific nodule in the left lower lobe, a follow-up unenhanced low-dose CT can be obtained in 3-6 months at clinical discretion. An addendum will be dictated regarding the non-vascular findings by the Desktop Administrator Radiologists. Signed: Charles Holdeneport Verified Date/Time: 07/16/2019 08:43:19 H, manual 2019-07-09 07:24:00 Test Item Value Reference Range Interpretation Comme nts ABO Grouping (test code = 2588) O Rh Factor (test code = 2589) POS [facility], [id number] 07:16:00 Test Item Value Reference Range Interpretation Comments ABO/RH AUTOMATED (BEAKER) (test O POSITIVE code = 2260) Ab Scrn (test code = 890-4) NEGATIVE [facility] 12 [id number] 07:07:42Interface, External Ris In - 07/06/2019 7:07 AM CSTVentricular Rate 59 BPMAtrial Rate 59 BPMP-R Interval 226 msQRS Duration 94 msQ-T Interval 434 msQTC Calculation(Bazett) 429 msP [place] 50 degreesR [place] 81 degreesT [place] 41 degreesSinus bradycardia with 1st degree A-V blockOtherwise normal ECGNo previous ECGs availableConfirmed by MD KASSANDRA, RANCHO ([id number]) on 07/06/2019 7:07:41 [facility] Basic Metabolic [id number] 12:50:00 Test Item Value Reference Range Interpretation Comments Sodium (test code = 141 meq/L 952-755 1532-2) Potassium (test code = 4.9 meq/L 3.5-5.1 2823-3) Chloride (test code = 104 meq/L 98-107 2075-0) CO2 (test code = 32 meq/L 22-29 H 2028-9) BUN (test code = 12 mg/dL 7-21 3094-0) Creatinine (test code 0.89 mg/dL 0.57-1.25 = 2160-0) Glucose (test code = 114 mg/dL 70-105 H 2345-7) Calcium (test code = 9.0 mg/dL 8.4-10.2 22043-5) EGFR (test code = 81 mL/min/1.73 [place] [address]-4) NOT ACCURATE CREATININE CLEARANCE IN PREDICTING GLOMERULAR FILTRATION RATE . ESTIMATED GFR I S NOT APPLICABLE FOR DIALYSIS PATIENTS. ROGELIO (test code = ROGELIO) Drop Board Man ID - SUNIL M Lab Interpretation Abnormal (test code = 26245-3) [facility]OLIC [id number] 12:50:00 Test Item Value Reference Range Interpretation Comments SODIUM (BEAKER) 141 meq/L 136-145 (test code = 381) POTASSIUM (BEAKER) 4.9 meq/L 3.5-5.1 (test code = 379) CHLORIDE (BEAKER) 104 meq/L 98-107 (test code = 382) CO2 (BEAKER) (test 32 meq/L 22-29 H code = 355) BLOOD UREA NITROGEN 12 mg/dL 7-21 (BEAKER) (test code = 354) CREATININE (BEAKER) 0.89 mg/dL 0.57-1.25 (test code = 358) GLUCOSE RANDOM 114 mg/dL 70-105 H (BEAKER) (test code = 652) CALCIUM (BEAKER) 9.0 mg/dL 8.4-10.2 (test code = 697) EGFR (BEAKER) (test 81 mL/min/1.73 ESTIMA WAYLON GFR IS code = 1092) sq m NOT ACCURATE CREATININE CLEARANCE IN PREDICTING GLOMERULAR FILTRATION RATE . ESTIMATED GFR I S NOT APPLICABLE FOR DIALYSIS PATIEN TS. Drop Board Man ID - SUNIL MCBC with platelet count + automated [id number] 12:31:00 Test Item Value Reference Range Interpretation Comments WBC (test code = 6690-2) 6.8 3.5- 10.5 K/L RBC (test code = 789-8) 5.31 4.63- 6.08 M/L MCHC (test code = 786-4) 33.0 32.3- 36.5 GM/DL Hematocrit (test code = 4544-3) 51.2 % 40.1-51 H MCV (test code = 787-2) 96.4 fL 79-92.2 H MCH (test code = 785-6) 31.8 pg 25.7-32.2 RDW (test code = 788-0) 13.6 % 11.6-14.4 Platelets (test code = 777-3) 276 150- 450 K/CU MM MPV (test code = 66677-2) 10.2 fL 9.4-12.4 nRBC (test code = 413) 0 0- 0 /100 WBC % Neutros (test code = 429) 64 % % Lymphs (test code = 430) 21 % % Monos (test code = 431) 8 % % Eos (test code = 432) 7 % % Baso (test code = 437) 1 % # Neutros (test code = 670) 4.32 1.78- 5.38 K/L # Lymphs (test code = 414) 1.39 1.32- 3.57 K/L # Monos (test code = 415) 0.53 0.30- 0.82 K/L # Eos (test code = 416) 0.46 0.04- 0.54 K/L # Baso (test code = 417) 0.05 0.01- 0.08 K/L Immature Granulocytes-Relative 0 % 0-1 (test code = 2801) Lab Interpretation (test code = Abnormal 41625-9) [facility] W/PLT COUNT & AUTO [id number] 12:31:00 Test Item Value Reference Range Interpretation Comments WHITE BLOOD CELL COUNT (BEAKER) 6.8 K/ L 3.5-10.5 (test code = 775) RED BLOOD CELL COUNT (BEAKER) 5.31 M/ L 4.63-6.08 (test code = 761) HEMOGLOBIN (BEAKER) (test code = 16.9 GM/DL 13.7-17.5 410) HEMATOCRIT (BEAKER) (test code = 51.2 % 40.1-51.0 H 411) MEAN CORPUSCULAR VOLUME (BEAKER) 96.4 fL 79.0-92.2 H (test code = 753) MEAN CORPUSCULAR HEMOGLOBIN 31.8 pg 25.7-32.2 (BEAKER) (test code = 751) MEAN CORPUSCULAR HEMOGLOBIN CONC 33.0 GM/DL 32.3-36.5 (BEAKER) (test code = 752) RED CELL DISTRIBUTION WIDTH 13.6 % 11.6-14.4 (BEAKER) (test code = 412) PLATELET COUNT (BEAKER) (test 276 K/CU MM 150-450 code = 756) MEAN PLATELET VOLUME (BEAKER) 10.2 fL 9.4-12.4 (test code = 754) NUCLEATED RED BLOOD CELLS 0 /100 WBC 0-0 (BEAKER) (test code = 413) NEUTROPHILS RELATIVE PERCENT 64 % (BEAKER) (test code = 429) LYMPHOCYTES RELATIVE PERCENT 21 % (BEAKER) (test code = 430) MONOCYTES RELATIVE PERCENT 8 % (BEAKER) (test code = 431) EOSINOPHILS RELATIVE PERCENT 7 % (BEAKER) (test code = 432) BASOPHILS RELATIVE PERCENT 1 % (BEAKER) (test code = 437) NEUTROPHILS ABSOLUTE COUNT 4.32 K/ L 1.78-5.38 (BEAKER) (test code = 670) LYMPHOCYTES ABSOLUTE COUNT 1.39 K/ L 1.32-3.57 (BEAKER) (test code = 414) MONOCYTES ABSOLUTE COUNT (BEAKER) 0.53 K/ L 0.30-0.82 (test code = 415) EOSINOPHILS ABSOLUTE COUNT 0.46 K/ L 0.04-0.54 (BEAKER) (test code = 416) BASOPHILS ABSOLUTE COUNT (BEAKER) 0.05 K/ L 0.01-0.08 (test code = 417) IMMATURE GRANULOCYTES-RELATIVE 0 % 0-1 PERCENT (BEAKER) (test code = 8731)
[2020-04-06 21:56] LABS: Absolute Lymphocytes (CBC) 0.6 K/uL (0.7-4.9); Basophils % 0.4 % (0-1.3); Hematocrit 49.8 % (39.6-49.0); Lymphocytes % 3.8 % (15.3-44.8); MPV 8.8 fL (7.6-11.3); RBC Red Blood Cell Count 5.34 M/uL (4.33-5.43)
[2020-04-06 22:01] LABS: Protime INR 1.03
[2020-04-06] MEDS ORDERED: CEFTRIAXONE/SWI 1gm 1 GM/10 ML SYR ONE (22:19)
[2020-04-06] MEDS ORDERED: METHYLPREDNISOLONE 125 MG INJ ONE (22:19)
[2020-04-06] MEDS ORDERED: NA CHLORIDE 0.9% 1,000 ML ONE (22:19)
[2020-04-06] MEDS ORDERED: AZITHROMYCIN 500 MG INJ IVPB ONE (22:19)
[2020-04-06] MEDS ORDERED: ALBUTEROL 2.5 MG/3 ML NEB SOL ONE ×2 (22:19→22:20)
[2020-04-06] MEDS ORDERED: IPRATROPIUM BROM 0.5MG/2.5ML ONE (22:19)
[2020-04-06] MEDS ORDERED: NA CHLORIDE 0.9% 250 ML ONE (22:19)
[2020-04-06 22:20] LABS: ALT/SGPT 23 U/L (12-78); AST/SGOT 22 U/L (15-37); Alkaline Phosphatase 114 U/L (45-117); BUN Blood Urea Nitrogen 14 mg/dL (7-18); Bicarbonate 28 mmol/L (21-32); Bilirubin Direct 0.1 mg/dL (0-0.2); Bilirubin Total 0.5 mg/dL (0.2-1.0); Glucose Level 146 mg/dL (74-106); Lipase 80 U/L (73-393); NT PRO-BNP 141 pg/mL (<450); Potassium 4.3 mmol/L (3.5-5.1); Protein, Total 7.9 g/dL (6.4-8.2); Sodium Level 140 mmol/L (136-145); Troponin (Emerg Dept Use Only) < 0.02 ng/mL (0.0-0.045)
--- NOTE | 2020-04-06 22:21 | ER ---
Nurse's Notes [facility] Name: Nikunj Farley Age: 89 yrs Sex: Male : 1930 Arrival Date: 04/06/2020 Time: 20:53 Bed 27 Private MD: Diagnosis: Weakness;Fever, unspecified;Other pneumonia, unspecified organism-right upper lobe;Hypoxemia;Elevated white blood cell count;Bandemia;Chronic obstructive pulmonary disease with (acute) exacerbation Presentation: 04/06 21:15 Chief complaint: Patient states: I was driving back from [employer] and started shaking jb4 for about 40 minutes, I feel weak all over, and EMS was called out. My blood pressure and heart rate were elevated but went back to normal, they said I have symptoms that resemble Covid-19 so I wanted to get checked out. 21:15 Coronavirus screen: Client denies travel out of the [place] in the last 14 days. Client yohannes presents with at least one sign or symptom that may indicate coronavirus-19. Ebola Screen: No symptoms or risks identified at this time. Initial Sepsis Screen: Does the patient meet any 2 criteria? RR > 20 per min. HR > 90 bpm. Yes Does the patient have a suspected source of infection? No. Patient's initial sepsis screen is negative. Risk Assessment: Do you want to hurt yourself or someone else? Patient reports no desire to harm self or others. Onset of symptoms was April 06, 2020. Transition of care: patient was not received from another setting of care. 21:15 Method Of Arrival: Wheelchair jb4 21:15 Acuity: RAKESH 2 jb4 Triage Assessment: 04/07 02:00 Respiratory: Reports shortness of breath cough that is Onset: The symptoms/episode wh began/occurred at an unknown time. the patient has mild shortness of breath. Historical: - Allergies: 04/06 21:15 No Known Allergies; jb4 - Home Meds: 21:15 Diabetes medication [Active]; blood pressure medication [Active]; jb4 - PMHx: 21:15 Hypertension; Diabetes - NIDDM; jb4 - PSHx: 21:15 None; jb4 - Immunization history:: Adult Immunizations up to date. - Social history:: Smoking status: Patient denies any tobacco usage or history of. Patient/guardian denies using alcohol, street drugs. - Family history:: not pertinent. Screenin/16 02:00 Abuse screen: Denies threats or abuse. Denies injuries from another. Nutritional wh screening: No deficits noted. Tuberculosis screening: No symptoms or risk factors identified. Fall Risk None identified. Assessment: 04/06 21:15 General: Appears distressed, uncomfortable, Behavior is calm, cooperative, appropriate jb4 for age. Pain: Denies pain. Neuro: Level of Consciousness is awake, alert, obeys commands, Oriented to person, place, time, situation. Cardiovascular: Patient's skin is warm and dry. Rhythm is sinus tachycardia. Respiratory: Airway is patent Respiratory effort is even, labored, Respiratory pattern is symmetrical, tachypnea Breath sounds are diminished bilaterally. GI: No signs and/or symptoms were reported involving the gastrointestinal system. : No signs and/or symptoms were reported regarding the genitourinary system. EENT: No signs and/or symptoms were reported regarding the EENT system. Derm: Skin is intact, Skin is pink, warm \T\ dry. Musculoskeletal: Circulation, motion, and sensation intact. Range of motion: intact in all extremities. 22:00 Reassessment: Patient appears in no apparent distress at this time. Patient and/or jb4 family updated on plan of care and expected duration. Pain level reassessed. Patient is alert, oriented x 3, equal unlabored respirations, skin warm/dry/pink. 23:00 Reassessment: Patient appears in no apparent distress at this time. Patient and/or jb4 family updated on plan of care and expected duration. Pain level reassessed. Patient is alert, oriented x 3, equal unlabored respirations, skin warm/dry/pink. PT back form CT, satting 86% on RA, NRB switched to \T\L NC Patient states feeling better. Patient states symptoms have improved. 23:54 Reassessment: Patient appears in no apparent distress at this time. Patient and/or jb4 family updated on plan of care and expected duration. Pain level reassessed. Patient is alert, oriented x 3, equal unlabored respirations, skin warm/dry/pink. Patient states symptoms have improved. Respiratory: Airway is patent Respiratory effort is even, unlabored, Respiratory pattern is regular, symmetrical, Breath sounds are clear bilaterally. Vital Signs: 21:15 BP 138 / 75; Pulse 97; Resp 28; Temp 99.7(TE); Pulse Ox 78% on R/A; Weight 102.06 kg jb4 (R); Height 6 ft. 2 in. (187.96 cm); Pain 0/10; 21:29 Pulse Ox 98% on Non-rebreather mask; jb4 22:28 BP 157 / 84; Pulse 97; Resp 17; Pulse Ox 99% on Nebulizer Mask; rv 23:00 BP 128 / 54; Pulse 106; Resp 19; Pulse Ox 96% on R/A; jb4 21:15 Body Mass Index 28.89 (102.06 kg, 187.96 cm) jb4 ED Course: 20:53 Patient arrived in ED. cf2 21:15 Arm band placed on right wrist. jb4 21:19 Balaji Chen MD is Attending Physician. blanca 21:24 Desmond Pollock RN is Primary Nurse. jb4 21:28 Triage completed. jb4 22:11 XRAY Chest (1 view) In Process Unspecified. EDMS 22:20 Neal West DO is Hospitalizing Provider. blanca 23:01 CT Chest For PE Angio In Process Unspecified. EDMS 04/07 02:00 Patient has correct armband on for positive identification. Placed in gown. Bed in low wh position. Call light in reach. Side rails up X 1. classroom monitor on. Pulse ox on. NIBP on. 02:00 No provider procedures requiring assistance completed. Patient admitted, IV remains in wh place. Administered Medications: 04/06 22:05 Drug: NS 0.9% 1000 ml Route: IV; Rate: 1 bolus; Site: right antecubital; jb4 23:00 Follow up: Response: No adverse reaction; IV Status: Completed infusion jb4 22:05 Drug: Rocephin 1 grams Route: IV; Rate: per protocol; Site: right antecubital; jb4 22:08 Follow up: IV Status: Completed infusion jb4 22:30 Follow up: Response: No adverse reaction jb4 22:05 Drug: SOLU-Medrol 125 mg Route: IVP; Site: right antecubital; jb4 23:55 Follow up: Response: No adverse reaction; Marked relief of symptoms jb4 22:05 Drug: Albuterol - atroVENT (3:1) (2.5 mg - 0.5 mg) 3 ml Route: Nebulizer; jb4 23:55 Follow up: Response: No adverse reaction; Marked relief of symptoms jb4 22:07 Drug: Zithromax 500 mg Route: IVPB; Infused Over: 1 hrs; Site: right antecubital; jb4 23:07 Follow up: Response: No adverse reaction; IV Status: Completed infusion jb4 23:01 Drug: Pepcid 20 mg Route: IVP; Site: right antecubital; jb4 23:55 Follow up: Response: No adverse reaction jb4 Outcome: 22:21 Decision to Hospitalize by Provider. blanca 04/07 02:00 Admitted to ER Hold. Please see [facility] for further documentation. Condition: stable Instructed on the need for admit. 08:12 Patient left the ED. em1 Signatures: Dispatcher [employer] Balaji Frazier MD MD cha Martinez, Eric em1 Desmond Pollock RN RN jb4 Severo Farr Shai Pulido RN RN Cristofer Tuttle 2 Corrections: (The following items were deleted from the chart) 02:59 02:00 Respiratory: Reports [facility]
--- NOTE | 2020-04-06 22:21 | EDPHYS ---
Physician Documentation [facility] Name: Nikunj Farley Age: 89 yrs Sex: Male : 1930 Arrival Date: 04/06/2020 Time: 20:53 Bed 27 Private MD: ED Physician Balaji Chen HPI: 04/06 22:14 This 89 yrs old Male presents to ER via Wheelchair with complaints of blanca Weakness, Fever. 22:15 The patient or guardian reports cough, difficulty breathing, flu symptoms, arthralgias, blanca low-grade fever, myalgias. Onset: The symptoms/episode began/occurred. Modifying factors: The symptoms are alleviated by nothing. the symptoms are aggravated by nothing. Onset: The symptoms/episode began/occurred just prior to arrival. Severity of symptoms: At their worst the symptoms were mild, moderate, in the emergency department the symptoms are unchanged. Associated signs and symptoms: Pertinent positives: fever, sore throat. Modifying factors: The symptoms are alleviated by nothing, the symptoms are aggravated by nothing. Severity of symptoms: At their worst the symptoms were mild moderate in the emergency department the symptoms are unchanged. Associated signs and symptoms: The patient has no apparent associated signs or symptoms. Historical: - Allergies: 21:15 No Known Allergies; jb4 - Home Meds: 21:15 Diabetes medication [Active]; blood pressure medication [Active]; jb4 - PMHx: 21:15 Hypertension; Diabetes - NIDDM; jb4 - PSHx: 21:15 None; jb4 - Immunization history:: Adult Immunizations up to date. - Social history:: Smoking status: Patient denies any tobacco usage or history of. Patient/guardian denies using alcohol, street drugs. - Family history:: not pertinent. ROS: 22:15 Constitutional: Negative for fever, chills, and weight loss, Eyes: Negative for injury, blanca pain, redness, and discharge, ENT: Negative for injury, pain, and discharge, Neck: Negative for injury, pain, and swelling, Cardiovascular: Negative for chest pain, palpitations, and edema, Abdomen/GI: Negative for abdominal pain, nausea, vomiting, diarrhea, and constipation, Back: Negative for injury and pain, : Negative for injury, bleeding, discharge, and swelling, MS/Extremity: Negative for injury and deformity, Skin: Negative for injury, rash, and discoloration, Neuro: Negative for headache, weakness, numbness, tingling, and seizure, Psych: Negative for depression, anxiety, suicide ideation, homicidal ideation, and hallucinations, Allergy/Immunology: Negative for hives, rash, and allergies, Endocrine: Negative for neck swelling, polydipsia, polyuria, polyphagia, and marked weight changes, Hematologic/Lymphatic: Negative for swollen nodes, abnormal bleeding, and unusual bruising. 22:15 Respiratory: Positive for cough, shortness of breath, wheezing, expiratory. Exam: 22:15 Constitutional: This is a well developed, well nourished patient who is awake, alert, blanca and in no acute distress. Head/Face: Normocephalic, atraumatic. Eyes: Pupils equal round and reactive to light, extra-ocular motions intact. Lids and lashes normal. Conjunctiva and sclera are non-icteric and not injected. Cornea within normal limits. Periorbital areas with no swelling, redness, or edema. ENT: Nares patent. No nasal discharge, no septal abnormalities noted. Tympanic membranes are normal and external auditory canals are clear. Oropharynx with no redness, swelling, or masses, exudates, or evidence of obstruction, uvula midline. Mucous membranes moist. Neck: Trachea midline, no thyromegaly or masses palpated, and no cervical lymphadenopathy. Supple, full range of motion without nuchal rigidity, or vertebral point tenderness. No Meningismus. Chest/axilla: Normal chest wall appearance and motion. Nontender with no deformity. No lesions are appreciated. Abdomen/GI: Soft, non-tender, with normal bowel sounds. No distension or tympany. No guarding or rebound. No evidence of tenderness throughout. Back: No spinal tenderness. No costovertebral tenderness. Full range of motion. Male : Normal genitalia with no discharge or lesions. Skin: Warm, dry with normal turgor. Normal color with no rashes, no lesions, and no evidence of cellulitis. MS/ Extremity: Pulses equal, no cyanosis. Neurovascular intact. Full, normal range of motion. Neuro: Awake and alert, GCS 15, oriented to person, place, time, and situation. Cranial nerves II-XII grossly intact. Motor strength 5/5 in all extremities. Sensory grossly intact. Cerebellar exam normal. Normal gait. Psych: Awake, alert, with orientation to person, place and time. Behavior, mood, and affect are within normal limits. 22:15 Cardiovascular: Rate: normal, Rhythm: regular, Pulses: Pulses are 4+ in bilateral radial, brachial, femoral, popliteal, posterior tibial and and dorsalis pedis arteries.. Heart sounds: normal, Edema: is not appreciated, JVD: is not appreciated. 22:15 Cardiovascular: JVD: 22:15 Musculoskeletal/extremity: DVT Exam: No signs of deep vein thrombosis. no pain, no swelling, no tenderness, negative Homans' sign noted on exam, no appreciated bluish discoloration, no erythema, no increased warmth. 22:24 ECG was reviewed by the Attending Physician. [facility] Vital Signs: 21:15 BP 138 / 75; Pulse 97; Resp 28; Temp 99.7(TE); Pulse Ox 78% on R/A; Weight 102.06 kg jb4 (R); Height 6 ft. 2 in. (187.96 cm); Pain 0/10; 21:29 Pulse Ox 98% on Non-rebreather mask; jb4 22:28 BP 157 / 84; Pulse 97; Resp 17; Pulse Ox 99% on Nebulizer Mask; rv 23:00 BP 128 / 54; Pulse 106; Resp 19; Pulse Ox 96% on R/A; jb4 21:15 Body Mass Index 28.89 (102.06 kg, 187.96 cm) jb4 MDM: 21:20 Patient medically screened. [facility] 22:19 Differential diagnosis: bronchitis, flu, URI. Antibiotic administration: Rocephin and blanca Zithromax given. Differential Diagnosis: Bronchitis Influenza Upper Respiratory Infection Sinusitis Pharyngitis Pneumonia. Data reviewed: vital signs, nurses notes, lab test result(s), EKG, radiologic studies, CT scan, plain films. Data interpreted: panel monitor: rate is 97 beats/min, rhythm is regular, Pulse oximetry: on room air is 80 %. Test interpretation: by ED physician or midlevel provider: ECG, plain radiologic studies. Counseling: I had a detailed discussion with the patient and/or guardian regarding: the historical points, exam findings, and any diagnostic results supporting the discharge/admit diagnosis, the presence of at least one elevated blood pressure reading (>120/80) during this emergency department visit, lab results, the need for further work-up and treatment in the hospital. 04/06 21:22 Order name: Basic Metabolic Panel; Complete Time: 22:21 [facility] 04/06 21:22 Order name: CBC with Diff; Complete Time: 22:28 [facility] 04/06 21:22 Order name: LFT's; Complete Time: 22:21 [facility] 04/06 21:22 Order name: Magnesium; Complete Time: 22:21 [facility] 04/06 21:22 Order name: NT PRO-BNP; Complete Time: 22:21 [facility] 04/06 21:22 Order name: PT-INR; Complete Time: 22:21 [facility] 04/06 21:22 Order name: Troponin (emerg Dept Use Only); Complete Time: 22:22 [facility] 04/06 21:22 Order name: Lipase; Complete Time: 22:22 [facility] 04/06 21:22 Order name: Blood Culture Adult (2) [facility] 04/06 21:22 Order name: Lactate; Complete Time: 22:22 [facility] 04/06 21:22 Order name: Procalcitonin; Complete Time: 22:58 [facility] 04/06 21:22 Order name: Influenza Screen (a \T\ B) [facility] 04/06 22:01 Order name: Manual Differential; Complete Time: 22:28 [facility] 04/06 21:22 Order name: XRAY Chest (1 view) [facility] 04/06 21:22 Order name: EKG; Complete Time: 21:24 [facility] 04/06 21:22 Order name: Cardiac monitoring; Complete Time: 22:27 [facility] 04/06 22:22 Order name: CT Chest For PE Angio [facility] 04/06 22:36 Order name: SARS-COV-2 RT PCR; Complete Time: 00:04 [facility] 04/06 23:28 Order name: Urine Culture [facility] 04/06 23:28 Order name: Urine Dipstick--Ancillary (enter results); Complete Time: 23:42 [facility] 04/07 05:54 Order name: CBC with Automated Diff [facility] 04/07 06:20 Order name: Magnesium [facility] 04/07 06:39 Order name: Basic Metabolic Panel [facility] 04/06 21:22 Order name: EKG - Nurse/Tech; Complete Time: 22:27 [facility] 04/06 21:22 Order name: IV Saline Lock; Complete Time: 22:27 [facility] 04/06 21:22 Order name: Labs collected and sent; Complete Time: 22:27 [facility] 04/06 21:22 Order name: O2 Per Protocol; Complete Time: : [facility] 04/06 21:22 Order name: O2 Sat Monitoring; Complete Time: : [facility] 04/06 21:22 Order name: Oxygen; Complete Time: : [facility] 04/06 23:28 Order name: Urine Dipstick-Ancillary (obtain specimen); Complete Time: :29 tt3 EC:24 Rate is 95 beats/min. Rhythm is regular. QRS [place] is Normal. [place] interval is normal. QRS blanca interval is normal. QT interval is normal. No Q waves. T waves are Normal. No ST changes noted. Clinical impression: NSR w/ Non-specific ST/T Changes and No evidence of ischemia. Interpreted by me. Reviewed by me. Administered Medications: 22:05 Drug: NS 0.9% 1000 ml Route: IV; Rate: 1 bolus; Site: right antecubital; jb4 23:00 Follow up: Response: No adverse reaction; IV Status: Completed infusion jb4 22:05 Drug: Rocephin 1 grams Route: IV; Rate: per protocol; Site: right antecubital; jb4 22:08 Follow up: IV Status: Completed infusion jb4 22:30 Follow up: Response: No adverse reaction jb4 22:05 Drug: SOLU-Medrol 125 mg Route: IVP; Site: right antecubital; jb4 23:55 Follow up: Response: No adverse reaction; Marked relief of symptoms jb4 22:05 Drug: Albuterol - atroVENT (3:1) (2.5 mg - 0.5 mg) 3 ml Route: Nebulizer; jb4 23:55 Follow up: Response: No adverse reaction; Marked relief of symptoms jb4 22:07 Drug: Zithromax 500 mg Route: IVPB; Infused Over: 1 hrs; Site: right antecubital; jb4 23:07 Follow up: Response: No adverse reaction; IV Status: Completed infusion jb4 23:01 Drug: Pepcid 20 mg Route: IVP; Site: right antecubital; jb4 23:55 Follow up: Response: No adverse reaction jb4 Disposition: 04/06/20 22:21 Hospitalization ordered by Neal West for Inpatient Admission. Preliminary diagnosis are Weakness, Fever, unspecified, Other pneumonia, unspecified organism - right upper lobe, Hypoxemia, Elevated white blood cell count, Bandemia, Chronic obstructive pulmonary disease with (acute) exacerbation. - Bed requested for Telemetry/MedSurg (Inpatient). - Status is Inpatient Admission. em1 - Condition is Fair. - Problem is new. - Symptoms have improved. Signatures: Dispatcher [employer] EDWI Balaji Chen MD MD cha Martinez, Eric em1 Tristen Doyt, GROCERY DELIVERER-C GROCERY DELIVERER-Cla1 Aminata Garsia, SYED RN tl1 Desmond Pollock RN RN jb4 Last Diaz tt3 Corrections: (The following items were deleted from the chart) 22:24 22:21 Hospitalization Ordered by Neal West DO for Inpatient Admission. Preliminary [facility] diagnosis is Weakness; Fever, unspecified; Other pneumonia, unspecified organism; Hypoxemia. Bed requested for Telemetry/MedSurg (Inpatient). Status is Inpatient Admission. Condition is Fair. Problem is new. Symptoms have improved. [facility] 22:36 21:23 CORONAVIRUS+MR.LAB.BRZ ordered. [facility] 22:58 22:24 04/06/2020 22:21 Hospitalization Ordered by Neal West DO for Inpatient blanca Admission. Preliminary diagnosis is Weakness; Fever, unspecified; Other pneumonia, unspecified organism; Hypoxemia; Elevated white blood cell count. Bed requested for Telemetry/MedSurg (Inpatient). Status is Inpatient Admission. Condition is Fair. Problem is new. Symptoms have improved. blanca 23:50 22:58 04/06/2020 22:21 Hospitalization Ordered by Neal West DO for Inpatient blanca Admission. Preliminary diagnosis is Weakness; Fever, unspecified; Other pneumonia, unspecified organism; Hypoxemia; Elevated white blood cell count; Bandemia. Bed requested for Telemetry/MedSurg (Inpatient). Status is Inpatient Admission. Condition is Fair. Problem is new. Symptoms have improved. blanca 04/07 00:09 04/06 23:50 04/06/2020 22:21 Hospitalization Ordered by Neal West DO for Inpatient tl1 Admission. Preliminary diagnosis is Weakness; Fever, unspecified; Other pneumonia, unspecified organism - right upper lobe; Hypoxemia; Elevated white blood cell count; Bandemia; Chronic obstructive pulmonary disease with (acute) exacerbation. Bed requested for Telemetry/MedSurg (Inpatient). Status is Inpatient Admission. Condition is Fair. Problem is new. Symptoms have improved. blanca 10 06:42 00:09 04/06/2020 22:21 Hospitalization Ordered by Neal West DO for Inpatient tl1 Admission. Preliminary diagnosis is Weakness; Fever, unspecified; Other pneumonia, unspecified organism - right upper lobe; Hypoxemia; Elevated white blood cell count; Bandemia; Chronic obstructive pulmonary disease with (acute) exacerbation. Bed requested for [facility] ER HOLD. Status is Inpatient Admission. Condition is Fair. Problem is new. Symptoms have improved. tl1 08:12 06:42 04/06/2020 22:21 Hospitalization Ordered by Neal West DO for Inpatient em1 Admission. Preliminary diagnosis is Weakness; Fever, unspecified; Other pneumonia, unspecified organism - right upper lobe; Hypoxemia; Elevated white blood cell count; Bandemia; Chronic obstructive pulmonary disease with (acute) exacerbation. Bed requested for Telemetry/MedSurg (Inpatient). Status is Inpatient Admission. Condition is Fair. Problem is new. Symptoms have improved. tl1
[2020-04-06 22:24] LABS: Platelet Estimate ADEQ
[2020-04-06 22:25] LABS: Blood Morphology Comment NOT SEEN (NOT SEEN)
[2020-04-06] MEDS ORDERED: FAMOTIDINE 20 MG/2 ML VIAL IV ONE (22:52)
[2020-04-06 23:30] LABS: Urine Blood NEGATIVE (NEG); Urine Glucose NEGATIVE (NEG); Urine Protein NEGATIVE (NEG); Urine pH 5.5 (5.0-7.0)
--- NOTE | 2020-04-07 00:36 | P.HP ---
Certification for Inpatient Patient admitted to: Inpatient With expected LOS: >2 Midnights Patient will require the following post-hospital care: None Practitioner: I am a practitioner with admitting privileges, knowledge of patient current condition, hospital course, and medical plan of care. Services: Services provided to patient in accordance with Admission requirements found in Title 42 Section 412.3 of the Code of Federal Regulations <Tristen Doty - Last Filed: 04/07/20 00:30> Patient History Date of Service: 04/07/20 Primary Care Provider: Dr. Abdi Reason for admission: Pneumonia History of Present Illness: 81-year-old male with history of diabetes mellitus type 2, hypertension, hyperlipidemia, depression presents emergency department for shortness of breath. Patient reports that he has been having malaise over the course of the last 1 month but today was driving home and again having rigors and chills. Patient presented the emergency department was found to be hypoxic with saturations of 78% on room air. Patient's workup in the emergency department revealed a right upper lobe pneumonia, leukocytosis at 14. Patient is still requiring oxygen although he is okay on 2 L per nasal cannula at this time. ED provider wishes to admit patient for further evaluation and man agement. When I saw the patient in the emergency department is awake, alert, oriented x3. No respiratory distress on nasal cannula. Patient negative for covid. - Past Medical/Surgical History -: Diabetes mellitus type 2 -: Hypertension -: Hyperlipidemia -: Depression -: Knee surgery -: Shoulder surgery Psychosocial/ Personal History: Patient lives at home alone and is retired. - Family History Family History: Reviewed- Non-Contributory - Social History Smoking Status: Former smoker Alcohol use: No CD- Drugs: No Caffeine use: Yes Place of Residence: Home <Tristen Doty - Last Filed: 04/07/20 00:30> Date of Service: 04/07/20 Home medications list reviewed: No - Past Medical/Surgical History Diabetic: Yes - Family History Family History: Reviewed- Non-Contributory <Neal West - Last Filed: 04/07/20 09:52> Allergies NKDA Allergy (Uncoded 06/01/15 01:29) Unknown Review of Systems 10-point ROS is otherwise unremarkable General: Fever, Chills, Malaise Respiratory: Cough, Shortness of Breath <Tristen Doty - Last Filed: 04/07/20 00:30> Physical Examination - Physical Exam General: Alert, In no apparent distress, Oriented x3 HEENT: Atraumatic, Normocephalic, PERRLA Neck: Supple Respiratory: Normal air movement, Diminished (Bilaterally) Cardiovascular: No edema, Regular rate/rhythm, Normal S1 S2 Capillary refill: <2 Seconds Gastrointestinal: Normal bowel sounds, Soft and benign Musculoskeletal: No contractures, No erythema, No tenderness Integumentary: No significant lesion, No tenderness/swelling, No erythema Neurological: Normal speech, Normal strength at 5/5 x4 extr, Normal tone, Sensation intact - Studies Laboratory Data (last 24 hrs) 04/06/20 21:45: PT 12.1, INR 1.03 04/06/20 21:45: WBC 14.7 H, Hgb 16.8, Hct 49.8 H, Plt Count 226 04/06/20 21:45: Sodium 140, Potassium 4.3, BUN 14, Creatinine 1.11, Glucose 146 H, Magnesium 2.0, Total Bilirubin 0.5, AST 22, ALT 23, Alkaline Phosphatase 114, Lipase 80 Microbiology Data (last 24 hrs): 04/06/20 21:50 Nasopharnyx Influenza Type A Antigen Screen - Final 04/06/20 21:50 Nasopharnyx Influenza Type B Antigen Screen - Final <Tristen Doty - Last Filed: 04/07/20 00:30> - Studies Laboratory Data (last 24 hrs) 04/06/20 21:45: PT 12.1, INR 1.03 04/06/20 21:45: WBC 14.7 H, Hgb 16.8, Hct 49.8 H, Plt Count 226 04/06/20 21:45: Sodium 140, Potassium 4.3, BUN 14, Creatinine 1.11, Glucose 146 H, Magnesium 2.0, Total Bilirubin 0.5, AST 22, ALT 23, Alkaline Phosphatase 114, Lipase 80 Microbiology Data (last 24 hrs): 04/06/20 21:50 Nasopharnyx Influenza Type A Antigen Screen - Final 04/06/20 21:50 Nasopharnyx Influenza Type B Antigen Screen - Final <Neal West - Last Filed: 04/07/20 09:52> Assessment and Plan - Plan Assessment Acute respiratory failure with hypoxia secondary to right upper lobe pneumonia Diabetes mellitus type 2 Hypertension Hyperlipidemia Depression Plan Acute respiratory failure with hypoxia secondary to right upper lobe pneumonia: Blood and sputum cultures obtained, continue with Rocephin/Zithromax this time. Continue to attempt to wean off of oxygen. Incentive spirometry in place. DVT prophylaxis Lovenox 40 mg subcutaneous once daily. Diabetes mellitus type 2: A.c. HS Accu-Cheks scale insulin therapy. Hypertension: Home medications continued Hyperlipidemia: Home medications continued Depression: Home medications continued. Discharge Plan: Home Plan to discharge in: 48 Hours - Advance Directives Does patient have a Living Will: No Does patient have a Durable POA for Healthcare: No - Code Status/Comfort Care Code Status Assessed: Yes (Patient is full code) Critical Care: No Time Spent Managing Pts Care (In Minutes): 55 <Tristen Doty - Last Filed: 04/07/20 00:30> - Plan Case discussed in detail with nurse practitioner. Agree with evaluation, assessment and plan of care. Continue IV antibiotic therapy. Will treat for possible underlying COPD. Wean off oxygen. Pulmonology consulted. Will obtain echocardiogram. Patient slightly dehydrated today. Will provide fluid bolus and continue maintenance. Please see progress note for details. <Neal West - Last Filed: 04/07/20 09:52>
[2020-04-07] MEDS ORDERED: ACETAMINOPHEN 500 MG TAB PO PRN (02:53)
[2020-04-07] MEDS ORDERED: TRAMADOL HCL 50 MG TAB PO PRN (02:53)
[2020-04-07] MEDS ORDERED: BENZONATATE 100 MG CAP PO PRN (02:53)
[2020-04-07] MEDS ORDERED: ONDANSETRON 4 MG/2 ML VIAL IV PRN (02:53)
[2020-04-07] MEDS: NA CHLORIDE 0.9% 1,000 ML IV SCH ×2 (02:53→09:07)
[2020-04-07] MEDS ORDERED: HYDROCODONE/APAP 5/325 MG TAB PO PRN (02:53)
[2020-04-07 03:00] VITALS: BMI 28.8
[2020-04-07] MEDS ORDERED: NA CHLORIDE 0.9% 1,000 ML ONE (03:55)
[2020-04-07 05:48] LABS: Absolute Lymphocytes (CBC) 0.4 K/uL (0.7-4.9); Basophils % 0.1 % (0-1.3); Hematocrit 43.6 % (39.6-49.0); Lymphocytes % 2.3 % (15.3-44.8); MPV 9.1 fL (7.6-11.3); RBC Red Blood Cell Count 4.61 M/uL (4.33-5.43)
[2020-04-07] MEDS ORDERED: atenoloL 25 MG TAB PO SCH (06:00)
[2020-04-07] MEDS ORDERED: NA CHLORIDE 0.9% 1,000 ML IV ONE (06:34)
[2020-04-07] MEDS ORDERED: CLOPIDOGREL 75 MG TABLET PO SCH (09:00)
[2020-04-07] MEDS ORDERED: PNEUMOCOCCAL VACCINE 0.5 ML IMVAC ONE (09:00)
[2020-04-07] MEDS ORDERED: CEFTRIAXONE 1 GM/NS 50 ML 1 GM/50 ML BAG IV SCH (09:00)
[2020-04-07] MEDS ORDERED: SERTRALINE HCL 50 MG TAB PO SCH (09:00)
[2020-04-07] MEDS ORDERED: ASPIRIN EC 81 MG TAB PO SCH (09:00)
[2020-04-07] MEDS ORDERED: VALSARTAN 160 MG TAB PO SCH (09:00)
[2020-04-07] MEDS ORDERED: ENOXAPARIN 40 MG/0.4 ML SQ SCH (09:00)
--- NOTE | 2020-04-07 09:02 | RAD REPORT ---
EXAM DESCRIPTION: Nyasia Single View04/06/2020 10:11 pm CLINICAL HISTORY: Cough COMPARISON: 2018 FINDINGS: Mild right upper lobe opacities Additional bilateral pulmonary opacities appear chronic The heart is borderline enlarged IMPRESSION: Mild right upper lobe opacities may represent pneumonia
[2020-04-07] MEDS: INSULIN -REGULAR HUMAN 50 UNIT/0.5 ML ML SQ SCH ×2 (09:07→11:49)
--- NOTE | 2020-04-07 09:44 | P.PN ---
Subjective Date of Service: 04/07/20 Primary Care Provider: Dr. Abdi Chief Complaint: Pneumonia Subjective: Other (Patient feels slightly improved.) Physical Examination - Vital Signs Temperature: 98.5 F Blood Pressure: 114/55 Pulse: 90 Respirations: 20 Pulse Ox (%): 93 - Physical Exam General: Alert, In no apparent distress, Cooperative HEENT: Atraumatic Neck: Supple Respiratory: Expiratory wheezes (Mild wheezing bilateral) Cardiovascular: Normal pulses, Regular rate/rhythm Gastrointestinal: Normal bowel sounds, Soft and benign, Non-distended Neurological: Normal speech, Normal strength at 5/5 x4 extr, Normal tone, Normal affect - Studies Laboratory Data (last 24 hrs) 04/06/20 21:45: PT 12.1, INR 1.03 04/06/20 21:45: WBC 14.7 H, Hgb 16.8, Hct 49.8 H, Plt Count 226 04/06/20 21:45: Sodium 140, Potassium 4.3, BUN 14, Creatinine 1.11, Glucose 146 H, Magnesium 2.0, Total Bilirubin 0.5, AST 22, ALT 23, Alkaline Phosphatase 114, Lipase 80 Microbiology Data (last 24 hrs): 04/06/20 21:50 Nasopharnyx Influenza Type A Antigen Screen - Final 04/06/20 21:50 Nasopharnyx Influenza Type B Antigen Screen - Final Medications List Reviewed: Yes Assessment & Plan Discharge Plan: Home Plan to discharge in: 24 Hours Physician Review Additional Text: Assessment Acute respiratory failure with hypoxia secondary to right upper lobe pneumonia complicated with possible underlying COPD exacerbation Diabetes mellitus type 2 with hyperglycemia Acute renal injury likely dehydration Hypertension Hyperlipidemia Depression Plan Acute respiratory failure with hypoxia secondary to right upper lobe pneumonia complicated with possible underlying COPD exacerbation: COVID test negative. Blood in urine cultures obtained. Continue Rocephin and Zithromax. Patient on DVT prophylaxis. Will provide incentive spirometer. Recheck chest x-ray. Patient likely has underlying COPD. CT scan revealed no pulmonary embolism but COPD changes with underlying right upper lobe pneumonia. Will start low-dose steroid. Will provide COPD medication. Pulmonology consulted for further recommendation. Wean off oxygen. Will check to see if patient requires home health and physical therapy. Anticipate improvement over the next 24-48 hr. I will turn the service over to the hospitalist team. I will go over the plan of care with him. Diabetes mellitus type 2 with hyperglycemia: Will obtain A1c. Continue Accu- Cheks and sliding scale. Will monitor and adjust appropriately. Obtain home medications. Acute renal injury likely dehydration: Will provide fluid bolus and continue maintenance. Will monitor closely. Hypertension: Blood pressure low this morning. Will provide fluid bolus. Discontinue TAWANDA-inhibitor. Place parameters on beta-randy therapy. Hyperlipidemia: Will need to review and restart home medication. Depression: Will need to review and restart home medication. Time Spent Managing Pts Care (In Minutes): 55
--- NOTE | 2020-04-07 12:00 | P.CNS ---
Date of Consult: 04/07/20 Reason for Consult: Pneumonia Primary Care Provider: Dr. Abdi Chief Complaint: Pneumonia History of Present Illness: Patient is 89 years of age has been complaining of severe chills the past 2 days toes associated with some dizziness denies any fever or productive cough and was admitted with right upper lobe pneumonia is currently doing well the former heavy smoker quit in 1983 no prior history of obstructive airways disease of c oronary artery disease Allergies NKDA Allergy (Uncoded 06/01/15 01:29) Unknown Home Medications: Ascorbic Acid [Vitamin C] 1 tab PO DAILY 04/07/20 Aspirin 1 tab PO DAILY 04/07/20 Docosahexanoic AC/Epa [Fish Oil 1,000 MG*] 1 tab PO DAILY 04/07/20 Meloxicam 1 tab PO DAILY 04/07/20 Multivit-Min/FA/Lycopen/Lutein [Centrum Silver Tablet] 1 tab PO DAILY 04/07/20 Sertraline HCl 1 tab PO DAILY 04/07/20 Simvastatin 1 tab PO BEDTIME 04/07/20 Valsartan 1 tab PO DAILY 04/07/20 - Past Medical/Surgical History Diabetic: Yes -: Diabetes mellitus type 2 -: Hypertension -: Hyperlipidemia -: Depression -: Knee surgery -: Shoulder surgery Psychosocial/ Personal History: Patient lives at home alone and is retired. - Social History Alcohol use: No CD- Drugs: No Caffeine use: Yes Place of Residence: Home Review of Systems 10-point ROS is otherwise unremarkable Physical Examination Temp Pulse Resp BP Pulse Ox 98.5 F 90 20 114/55 L 93 04/07/20 09:46 04/07/20 09:46 04/07/20 09:46 04/07/20 09:46 04/07/20 09:46 General: Alert, Oriented x3 Respiratory: Clear to auscultation bilaterally Cardiovascular: No edema, Normal S1 S2 Gastrointestinal: Normal bowel sounds, Non-distended Laboratory Data (last 24 hrs) 04/06/20 21:45: PT 12.1, INR 1.03 04/06/20 21:45: WBC 14.7 H, Hgb 16.8, Hct 49.8 H, Plt Count 226 04/06/20 21:45: Sodium 140, Potassium 4.3, BUN 14, Creatinine 1.11, Glucose 146 H, Magnesium 2.0, Total Bilirubin 0.5, AST 22, ALT 23, Alkaline Phosphatase 114, Lipase 80 - Problems (1) Pneumonia Current Visit: Yes Status: Acute Plan: Patient is 89 years of age admitted with is the chills he has had no fever hemodynamically stable although he is a hypoxic at room-air Dominguez has underlying pneumococcal pneumonia CT scan shows minimal right upper lobe change this to p.o. levofloxacin (2) COPD (chronic obstructive pulmonary disease) Current Visit: Yes Status: Acute Plan: Presume COPD he is hypoxic agree with setting him up with oxygen 2 L a min pred nisone 10 mg twice a day for a week in addition to a bronchodilator stable to be discharged home to follow up with me in 1 or 2 weeks some cultures else are pending as not at risk for resistant infections room-air sat was 87% discontinue the atenolol blood pressure is slightly low Qualifiers: Emphysema type: unspecified
--- NOTE | 2020-04-07 12:23 | RAD REPORT ---
EXAM DESCRIPTION: CT - Chest For Pe Angio - 04/07/2020 7:04 am CLINICAL HISTORY: Dyspnea;Cough;COPD;Fever COMPARISON: None. TECHNIQUE: CT CHEST ANGIOGRAPHY WITH IV CONTRAST on 04/06/2020 10:23 PM CDT. MIPS reconstructions we re generated. This exam was performed according to our departmental dose-optimization program, which includes autom ated exposure control, adjustment of the mA and/or kV according to patient size and/or use of iterati ve reconstruction technique. MIP images were generated. FINDINGS: Thoracic aorta is normal in course and caliber without aneurysm or dissection. Pulmonary a rteries are adequately opacified without acute or chronic filling defects. The heart is moderately enlarged. There is no pericardial effusion. Intrathoracic lymph nodes are not enlarged. There is no pleural effusion, pleural thickening or pneumothorax. Central airways are patent. There i s upper lung centrilobular emphysema. There is mild airspace disease in the inferior right upper lobe . There is right basilar atelectasis. In the upper abdomen, there is a large gallstone in the gallbladder. There are no acute osseous fin dings. No suspicious bony lesions. IMPRESSION: Limited study. No aortic dissection or aneurysm. No pulmonary embolus. Emphysema with developing right upper lobe pneumonia. Electronically signed by: Bharat Vidal MD 04/06/2020 11:28 PM CDT Due to temporary technical issues with the PACS/Fluency reporting system, reports are being signed by the in house radiologist without review as a courtesy to ensure prompt reporting. The interpreting r adiologist is fully responsible for the content of the report.
[2020-04-07] MEDS ORDERED: ALBUTEROL INHALER 60 PUFF/8 GM IH PRN (12:34)
--- NOTE | 2020-04-07 12:38 | P.DS ---
Admission Date: 04/06/20 Discharge Date: 04/07/20 Primary Care Provider: Dr. Abdi Disposition: DC HOME/HOME HEALTH CARE Discharge Condition: GOOD Reason for Admission: Pneumonia Consultations: Pulmonary-Dr. Dodson Procedures: Ct Scan: FINDINGS: Thoracic aorta is normal in course and caliber without aneurysm or dissection. Pulmonary arteries are adequately opacified without acute or chronic filling defects. The heart is moderately enlarged. There is no pericardial effusion. Intrathoracic lymph nodes are not enlarged. There is no pleural effusion, pleural thickening or pneumothorax. Central airways are patent. There is upper lung centrilobular emphysema. There is mild airspace disease in the inferior right upper lobe. There is right basilar atele ctasis. In the upper abdomen, there is a large gallstone in the gallbladder. There are no acute osseous findings. No suspicious bony lesions. IMPRESSION: Limited study. No aortic dissection or aneurysm. No pulmonary embolus. Emphysema with developing right upper lobe pneumonia. Medical Problem List: Acute respiratory failure with hypoxia secondary to right upper lobe pneumonia complicated with possible underlying COPD exacerbation Diabetes mellitus type 2 with hyperglycemia Acute renal injury likely dehydration Hypertension Hyperlipidemia Depression Prediabetes Brief History of Present Illness: 89-year-old male with history of hypertension, former tobacco use, and hyperlipidemia. Patient presented with increasing shortness of breath. Patient found to have pneumonia. Patient had been feeling ill over the past month. Increasing shortness of breath was noted over the last day. Patient found to be hypoxic as well. Patient admitted for further evaluation and treatment. Hospital Course: Patient presented with dyspnea secondary to acute respiratory failure with hypoxia secondary to right upper lobe pneumonia. This was further complicated with possible underlying COPD. Patient admitted Overnite. Patient was seen by pulmonology. CT scan revealed no pulmonary embolism but right upper lobe pneumonia noted. The patient has done well. Room-air saturations were about 87%. Patient qualifies for oxygen. Education on COPD was provided. Patient was also started on low-dose steroid along with inhalers. At discharge the patient will continue with Levaquin 500 mg daily for 7 days for the pneumonia. Recommend repeat chest x-ray in 2-4 weeks to monitor resolution. For his COPD, patient will be provided home oxygen to maintain sats above 93%. Patient was requiring 2 L per nasal cannula. Patient will also continue with prednisone 10 mg daily for 7 days. New medications include Dulera 2 puffs twice daily and albuterol 2 puffs 3 times a day as needed for shortness of breath. Patient will be provided samples of Dulera and albuterol at discharge. Education will be provided on use. COPD education will also be provided. Recommend follow up with pulmonology within 1 week to follow up this hospitalization. Pulmonology will further evaluate his COPD with possible pulmonary function test as an outpatient. Patient with hypertension. His medication was held due to acute renal injury likely from dehydration. Patient takes valsartan 320 mg daily. Recommend to restart blood pressure medication valsartan 320 mg daily. Recommend to monitor blood pressure daily. Recommend to maintain blood pressure less 150/80. If blood pressure is less than 110 systolic. He is to hold valsartan. Further adjustment in medication may be required. This can be done with the help of his PCP. Recommend to recheck lab-BMP in 1 week to monitors progress. Patient with hyperlipidemia. At discharge patient will continue with fish oil daily and Zocor 20 mg daily. Patient with depression. At discharge patient will continue with sertraline 50 mg daily. Patient with Prediabetes. A1c is 6.4. Diabetes mellitus education with be provided. A1c above 6.5 is considered Diabetes. Recommend to follow up with PCP to further monitor and address. Patient will need repeat A1c in 3 months to make sure this does not develop an to diabetes. Vital Signs/Physical Exam: Temp Pulse Resp BP Pulse Ox 98.5 F 90 20 114/55 L 93 04/07/20 09:46 04/07/20 09:46 04/07/20 09:46 04/07/20 09:46 04/07/20 09:46 General: Alert, In no apparent distress, Oriented x3, Cooperative HEENT: Atraumatic Neck: Supple Respiratory: Clear to auscultation bilaterally, Normal air movement Cardiovascular: Normal pulses, Regular rate/rhythm Gastrointestinal: Normal bowel sounds, Soft and benign, Non-distended, No tenderness, No masses, No rebound, No guarding Musculoskeletal: No erythema, No tenderness, No warmth Integumentary: No tenderness/swelling, No erythema, No warmth, No cyanosis Neurological: Normal speech, Normal strength at 5/5 x4 extr, Normal tone, Normal affect Laboratory Data at Discharge: WBC 16.4 K/uL (4.3-10.9) H 04/07/20 05:16 Hgb 14.5 g/dL (13.6-17.9) 04/07/20 05:16 Hct 43.6 % (39.6-49.0) 04/07/20 05:16 Plt Count 241 K/uL (152-406) 04/07/20 05:16 PT 12.1 SECONDS (9.5-12.5) 04/06/20 21:45 INR 1.03 04/06/20 21:45 Sodium 141 mmol/L (136-145) 04/07/20 05:16 Potassium 4.0 mmol/L (3.5-5.1) 04/07/20 05:16 BUN 15 mg/dL (7-18) 04/07/20 05:16 Creatinine 1.30 mg/dL (0.55-1.3) 04/07/20 05:16 Glucose 227 mg/dL (74-106) H 04/07/20 05:16 Magnesium 1.9 mg/dL (1.8-2.4) 04/07/20 05:16 Total Bilirubin 0.5 mg/dL (0.2-1.0) 04/06/20 21:45 AST 22 U/L (15-37) 04/06/20 21:45 ALT 23 U/L (12-78) 04/06/20 21:45 Alkaline Phosphatase 114 U/L (45-117) 04/06/20 21:45 Lipase 80 U/L (73-393) 04/06/20 21:45 Home Medications: Albuterol Inhaler [Ventolin Inhaler*] 2 puff IH Q6H PRN #1 hfa.[email or web address] 04/07/20 Ascorbic Acid [Vitamin C] 1 tab PO DAILY 04/07/20 Aspirin 1 tab PO DAILY 04/07/20 Atenolol [Tenormin] 1 tab PO DAILY 04/07/20 Levofloxacin [Levaquin] 500 mg PO DAILY #7 tablet 04/07/20 Mometasone/Formoterol [Dulera 100 Mcg/5 Mcg Inhaler] 2 puff IH BID #1 inhaler 04/07/20 Multivit-Min/FA/Lycopen/Lutein [Centrum Silver Tablet] 1 tab PO DAILY 04/07/20 Metcalf-3/Dha/Epa/Fish Oil [Fish Oil 1,200 mg Softgel] 1 cap PO DAILY 04/07/20 Sertraline HCl 1 tab PO DAILY 04/07/20 Simvastatin 1 tab PO BEDTIME 04/07/20 Valsartan 1 tab PO DAILY 04/07/20 predniSONE [Deltasone*] 10 mg PO DAILY #7 tab 04/07/20 New Medications: predniSONE [Deltasone*] 10 mg PO DAILY #7 tab Mometasone/Formoterol [Dulera 100 Mcg/5 Mcg Inhaler] 2 puff IH BID #1 inhaler Levofloxacin [Levaquin] 500 mg PO DAILY #7 tablet Albuterol Inhaler [Ventolin Inhaler*] 2 puff IH Q6H PRN #1 hfa.aer.ad PRN Reason: Shortness Of Breath Patient Discharge Instructions: 1. Follow up with PCP in 1 week to follow up this hospitalization. 2. Patient presented with dyspnea secondary to acute respiratory failure with hypoxia secondary to right upper lobe pneumonia. This was further complicated with possible underlying COPD. Patient admitted Overnite. Patient was seen by pulmonology. CT scan revealed no pulmonary embolism but right upper lobe pneumonia noted. The patient has done well. Room- air saturations were about 87%. Patient qualifies for oxygen. Education on COPD was provided. Patient was also started on low-dose steroid along with inhalers. At discharge the patient will continue with Levaquin 500 mg daily for 7 days for the pneumonia. Recommend repeat chest x-ray in 2-4 weeks to monitor resolution. For his COPD, patient will be provided home oxygen to maintain sats above 93%. Patient was requiring 2 L per nasal cannula. Patient will also continue with prednisone 10 mg daily for 7 days. New medications include Dulera 2 puffs twice daily and albuterol 2 puffs 3 times a day as needed for shortness of breath. Patient will be provided samples of Dulera and albuterol at discharge. Education will be provided on use. COPD education will also be provided. Recommend follow up with pulmonology within 1 week to follow up this hospitalization. Pulmonology will further evaluate his COPD with possible pulmonary function test as an outpatient. 3. Patient with hypertension. His medication was held due to acute renal injury likely from dehydration. Patient takes valsartan 320 mg daily. Recommend to restart blood pressure medication valsartan 320 mg daily. Recommend to monitor blood pressure daily. Recommend to maintain blood pressure less 150/80. If blood pressure is less than 110 systolic. He is to hold valsartan. Further adjustment in medication may be required. This can be done with the help of his PCP. Recommend to recheck lab- BMP in 1 week to monitors progress. 4. Patient with hyperlipidemia. At discharge patient will continue with fish oil daily and Zocor 20 mg daily. 5. Patient with depression. At discharge patient will continue with sertraline 50 mg daily. 6. Patient with Prediabetes. A1c is 6.4. Diabetes mellitus education with be provided. A1c above 6.5 is considered Diabetes. Recommend to follow up with PCP to further monitor and address. Patient will need repeat A1c in 3 months to make sure this does not develop an to diabetes. Diet: ADA Activity: Ad sarina Time spent managing pt's care (in minutes): 55
[2020-04-07 13:57] VITALS: BP 98/50; TEMP 99
[2020-04-07] MEDS ORDERED: NA CHLORIDE 0.9% 500 ML IV ONE ×2 (14:00→14:02)
[2020-04-07 16:05] VITALS: O2SAT 95
[2020-04-07] MEDS ORDERED: ARFORMOTEROL TARTRATE 15 MCG/2 ML VIAL.NEB NEB SCH (20:00)
[2020-04-07] MEDS ORDERED: DULERA 100/5 (MOMETASONE/FORMOTEROL) INHALER IH SCH (21:00)
[2020-04-07] MEDS ORDERED: AZITHROMYCIN IV 500 MG in NA CHLORIDE 0.9% 250 ML IVPB SCH (21:00)
[2020-04-07] MEDS ORDERED: CEFTRIAXONE/SWI 1gm 1 GM/10 ML SYR IV SCH (21:00)
[2020-04-08] MEDS ORDERED: predniSONE 10 MG TAB PO SCH (09:00)
--- NOTE | 2020-04-10 08:11 | ECHO ---
HEIGHT: 6 ft 2 in WEIGHT: 225 lb 0 oz DATE OF STUDY: 04/07/[address]: Neal West DO 2-DIMENSIONAL: YES M.MODE: YES DOPPLER: YES COLOR FLOW: YES TDS: NO PORTABLE: NO DEFINITY: NO BUBBLE STUDY: NO DIAGNOSIS: DYSPNEA, EVALUATE FOR POSSIBLE CONGESTIVE HEART FAILURE CARDIAC HISTORY: CATHERIZATION: NO SURGERY: NO PROSTHETIC VALVE: NO PACEMAKER: NO MEASUREMENTS (cm) DIASTOLIC (NORMALS) SYSTOLIC (NORMALS) IVSd 1.1 (0.6-1.2) LA Diam 3.9 (1.9-4.0) LVEF 53% LVIDd 4.2 (3.5-5.7) LVIDs 3.1 (2.0-3.5) %FS 27% LVPWd 1.0 (0.6-1.2) Ao Diam 3.2 (2.0-3.7) 2 DIMENSIONAL ASSESSMENT: RIGHT ATRIUM: NORMAL LEFT ATRIUM: NORMAL RIGHT VENTRICLE: NORMAL LEFT VENTRICLE: NORMAL TRICUSPID VALVE: NORMAL MITRAL VALVE: NORMAL PULMONIC VALVE: NORMAL AORTIC VALVE: NORMAL PERICARDIAL EFFUSION: NONE AORTIC ROOT: NORMAL LEFT VENTRICULAR WALL MOTION: NORMAL DOPPLER/COLOR FLOW: GRADE I DIASTOLIC DYSFUNCTION. COMMENTS: NORMAL LEFT VENTRICULAR EJECTION FRACTION 55-60% WITH NORMAL WALL MOTION. GRADE I DIASTOLIC DYSFUNCTION. TECHNOLOGIST: Shelbi SCOTT
== END 2020-04-07 16:59 | disposition home or self-care (01) ==
LOC: ER 20:49 → ERHOLD 23:42 → INTOOBSV 23:42 → 2ND 04-07 07:52
PROVIDERS: ADMIT Family Medicine; ATTEND Family Medicine
DX: J13 Pneumonia due to Streptococcus pneumoniae (principal); J96.01 Acute respiratory failure with hypoxia; N17.9 Acute kidney failure, unspecified; J44.9 Chronic obstructive pulmonary disease, unspecified; E11.65 Type 2 diabetes mellitus with hyperglycemia; I10 Essential (primary) hypertension; E78.5 Hyperlipidemia, unspecified; F32.9 Major depressive disorder, single episode, unspecified; Z87.891 Personal history of nicotine dependence; Z20.828 Contact with and (suspected) exposure to other viral communicable diseases
CPT/HCPCS: 96365; 93005; 93306; 87040 ×2; 87088; 85025 ×2; 87086; 80048 ×2; 36415; 83735 ×2; 85610; 82947 ×2; 80076; 83605; 81003; 83036; 84484; 83690; 84145; 83880; 87804 ×2; 71275; 71045; 94010; 96375; 99285; U0003; Q9967; J0456; J1650; J0696; J7050; J7040; J7030 ×3; J2930; G0378 ×2; J7606